=== PATIENT | female | born 1945 | race Caucasian/White ===

== ENCOUNTER 2022-05-31 17:54 | Outpatient (REF) | payer MEDICARE, SELFPAY ==
[2022-05-31 18:35] LABS: Influenza A PCR NEGATIVE (Negative); Influenza B PCR NEGATIVE (Negative); Resp Syncy Virus RNA Qual PCR NEGATIVE (Negative); SARS COV2 PCR INHOUSE NEGATIVE (Negative)
== END 2022-05-31 17:55 | disposition home or self-care (01) ==
LOC: HO.LNP 17:54
PROVIDERS: Visit Provider Internal Medicine
DX: R43.9 Unspecified disturbances of smell and taste (principal); Z20.822 Contact with and (suspected) exposure to COVID-19
CPT/HCPCS: 0241U

== ENCOUNTER 2022-11-08 09:07 | Outpatient (AMB) | payer MEDICARE, SELFPAY ==
--- NOTE | 2022-11-08 09:08 | AM.OFFWIN_ITS ---
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 Intake Note: pt is here for upset stomach, pt states she was constipated for a few days, states the upset stomach is been lasting a week Patient Tobacco Use Status: Never used Tobacco Set Up Operator Required: No Accompanied by: Self / Same As Patient Allergies No Known Allergies Allergy (Verified 11/08/22 09:40) Medication List - Last Reconciled 11/08/22 by Nora Valle, [facility]- amlodipine 5 mg PO DAILY atorvastatin 40 mg PO DAILY Do you need a note to return to daycare/school/sports/work: No HPI HPI Comments History of Present Illness Details Here today with complaints of abdominal pain in the right upper and right lower quadrant that started a few days ago. Reports she started off with constipation which she treated with [id number] Colace with good relief. It was then that she started with this abdominal pain. She has been using Advil once daily with positive relief. She denies fever and chills nausea vomiting. Reports a normal appetite. Denies abdominal surgery or any alcohol use. [facility] Social History Patient Tobacco Use Status: Never used Tobacco Review of Systems Const All systems reviewed & are unremarkable except as noted in HPI and below Physical Exam Vital Signs: Last Vital Signs Temp 97.6 F 11/08/22 09:10 Pulse 106 H 11/08/22 09:10 BP 126/72 11/08/22 09:10 Pulse Ox 94 11/08/22 09:10 Const Other: Awake alert nontoxic, anxious sclera clear bilat mucous membranes dry which she reports is normal tachycardic normal rhythm tachypneic, speaking in full sentences maintaining on airway abdomen is soft positive bowel sounds in 4 quadrants, rebound tenderness in left lower quadrant and right lower quadrant. Negative Coates sign. No hepatosplenomegaly appreciated on exam no epigastric tenderness. skin pink warm dry Assessment & Plan Assessment & Plan (1) Acute abdominal pain in left lower quadrant: Code(s): R10.32 - Left lower quadrant pain Plan given exam findings today the patient was advised to seek care in the emergency room for additional imaging. Differential diagnosis includes diverticulitis versus appendicitis. She states that she has to work at 11:00 and does not want to go to the emergency room right now. She will go to work and then she will report to the [facility] Emergency Room. I told her to advise the triage desk that she was seen here so they were able to pull up the records. She is aware of the risks of not seeking care right now as recommended. Patient Instructions: NOTHING TO EAT OR DRINK. PLEASE HEAD DIRECTLY TO THE EMERGENCY ROOM FOR FURT HER EVALUATION AND TREATMENT Coding Level of Care Code Est Pt Level 3 (38163) Diagnoses Acute abdominal pain in left lower quadrant R10.32
[2022-11-08 09:10] VITALS: BP 126/72; PULSE 106; TEMP 36.4; O2SAT 94
== END 2022-11-08 09:55 | disposition home or self-care (01) ==
PROVIDERS: PCP Internal Medicine; Visit Provider Nurse Practitioner Family
DX: R10.32 Left lower quadrant pain (principal)
CPT/HCPCS: 99213

== ENCOUNTER 2022-11-08 15:32 | Inpatient (IN) | payer MEDICARE, SELFPAY ==
--- NOTE | ~2022-11-08 | CT_ITS ---
EXAMINATION: CT ANGIOGRAM OF THE CHEST WITH AND WITHOUT CONTRAST (CT PULMONARY ANGIOGRAM FOR PE) CLINICAL INFORMATION: Reason for Exam SOB COMPARISON: 11/08/2022 TECHNIQUE: Prior to contrast administration, noncontrast localization images were obtained. Subsequently, multidetector volumetric imaging was performed from the thoracic inlet to below the diaphragms following the administration of 74 mL Omnipaque 350 intravenous contrast. No contrast reaction reported Sagittal, coronal, and MIP oblique sagittal reformatted images were obtained on the CT workstation, uploaded to PACS, and reviewed. This CT examination was performed using dose optimization techniques as appropriate, variously including the following: *Automated exposure control *Adjustment of mA and/or kV according to patient size (this includes techniques or standardized protocols for targeted exams where dose is matched to indication/reason for exam; i.e. extremities or head) *Use of iterative reconstruction technique Total exam dose-length product 347 mGy-cm FINDINGS: QUALITY OF STUDY/CONTRAST BOLUS: Satisfactory. PULMONARY ARTERIES: No central or proximal segmental pulmonary embolus is seen. However, there is a complete assessment of the more distal vasculature due to respiratory motion artifact. THORACIC AORTA: No aneurysm. LUNG: Again noted is collapse of most of the left lung secondary to adjacent large pleural effusion. No focal consolidation identified in the right lung, with evaluation limited due to respiratory motion artifact. Mild dependent atelectasis in the right lower lobe. PLEURA: Large left pleural effusion redemonstrated. Trace right pleural effusion. No pneumothorax. MEDIASTINUM: The visualized thyroid gland is unremarkable. Subcarinal soft tissue density measuring up to 1.7 cm in short axis dimension and is suspicious for adenopathy. Cardiac size is within normal limits; no pericardial effusion. CORONARY ARTERY CALCIFICATION: Mild CHEST WALL/AXILLA: No axillary or internal mammary lymphadenopathy. OSSEOUS STRUCTURES: Degenerative changes are noted in the spine. UPPER ABDOMEN: Better assessed on dedicated recent abdominal CT 11/08/2022. No reflux of contrast into the hepatic veins to suggest elevated right heart pressures. CT/CT angio chest PE protocol IMPRESSION: 1. No central or proximal segmental pulmonary embolus identified. However, there is complete assessment of the more distal vasculature due to respiratory motion artifact. 2. Redemonstrated large left pleural effusion with collapse of most of the left lung. Trace right pleural effusion. 3. Subcarinal soft tissue density suspicious for travis metastasis given the recently reported findings in the abdomen. VTE: negative.
--- NOTE | ~2022-11-08 | US_ITS ---
Examination: Ultrasound-guided left thoracentesis. CLINICAL HISTORY: Moderate left pleural effusion. COMPARISON: CT H cast 11/09/2022. TECHNIQUE: Following explaining ultrasound-guided left thoracentesis procedure, benefits and risk, a written consent was obtained. Patient was placed sitting upright and preliminary ultrasound imaging was obtained through the posterior chest. An optimal site was selected and marked on the skin. The marked site was cleaned and draped in usual sterile managed with 2% chlorhexidine solution. 1% lidocaine was injected puncture site. Through a small skin incision a 4 [place] [employer].fmeh catheter was advanced into the left pleural space. After observing fluid return, stylet was withdrawn and catheter connected to vacuum bottle via connecting cannula. After removing 1.1 L of fluid patient complained of mild shortness of breath. Exam was terminated at this point. Complete hemostasis achieved at puncture site. Sterile dressing applied postprocedure. Portable chest x-ray was obtained subsequently FINDINGS: On preliminary ultrasound imaging there is moderate to large left pleural effusion. A very small right pleural effusion was noted. Approximately 1.1 L of clear cloudy red fluid was drained from the left pleural space. Part of this fluid was sent to lab for culture and sensitivity, Gram stain, cytology, and other lab evaluation. US/US thoracentesis IMPRESSION: Successful ultrasound-guided diagnostic and partial therapeutic left thoracentesis performed.
--- NOTE | ~2022-11-08 | CT_ITS ---
EXAMINATION: CT CHEST, ABDOMEN AND PELVIS WITH CONTRAST CLINICAL INFORMATION: Right-sided abdominal pain and left pleural effusion COMPARISON: No pertinent prior studies are available for comparison. TECHNIQUE: Multidetector volumetric imaging was performed through the abdomen and pelvis during administration of 85 mL of Omnipaque 350. Directly after this, the chest was scanned. Sagittal and coronal reformatted images were obtained on the technologist's workstation. This CT examination was performed using dose optimization techniques as appropriate, variously including the following: *Automated exposure control *Adjustment of mA and/or kV according to patient size (this includes techniques or standardized protocols for targeted exams where dose is matched to indication/reason for exam; i.e. extremities or head) *Use of iterative reconstruction technique DLP: 640 mGy-cm FINDINGS: CHEST: Lungs and Pleura: There is a large left pleural effusion present with collapse of most of the left lung with only a small amount of aerated lung present in the left upper lobe. There is a small right pleural effusion and right basilar atelectasis. Some small micronodules are seen in the right lower lobe beneath the major fissure most likely tarvis tissue. Mediastinum: The mediastinum is unremarkable. The central vascular structures are unremarkable. No hilar or mediastinal lymphadenopathy. No pericardial effusion. Coronary Artery Calcium: Minimal Chest Wall/Axilla: Unremarkable ABDOMEN/PELVIS: Peritoneal Space: Omental cake is present in the greater omentum as well as the mesentery suspicious for peritoneal carcinomatosis. There is tethering of some small bowel loops in the pelvis secondary to the mesenteric changes. Small amount of ascites is present in the pelvis. Liver, Gallbladder, Biliary Tree: The liver is normal in size, shape, and attenuation. Multiple tiny hypodensities are seen in the liver that are indeterminate. No focal hepatic lesion or biliary ductal dilatation is present. The gallbladder is unremarkable with no evidence of radiopaque gallstones, gallbladder wall thickening, or obvious pericholecystic inflammatory changes. Pancreas: Unremarkable Spleen: Unremarkable Adrenal Glands: Unremarkable Kidneys and Ureters: The kidneys are normal in size, shape, and attenuation. Multiple bilateral parapelvic benign Bosniak class I renal cysts are noted which require no additional imaging or follow-up. No solid renal masses are seen. No hydronephrosis, hydroureter, or calculi seen. No perinephric stranding. Bladder: Unremarkable Gastrointestinal Tract: Colonic diverticula are present without diverticulitis. There is some mild tethering of small bowel loops in the pelvis secondary to mesenteric/omental changes but no evidence of bowel obstruction. The small and large bowel are unremarkable. The appendix is unremarkable. Abdominal Wall: No significant hernia is appreciated. Lymph Nodes: No lymphadenopathy. Vascular: The aorta appears normal.. The IVC appears unremarkable. PELVIC VISCERA: Unremarkable OSSEUS STRUCTURES: Scoliosis convex to the left with moderate degenerative changes are noted throughout the spine. No bony destructive lesions are seen. CT/CT abdomen pelvis w IV con IMPRESSION: 1. Large left pleural effusion with collapse of most of the left lung. 2. Small right pleural effusion. 3. Omental cake suspicious for peritoneal carcinomatosis with a small amount of ascites. 4. Other incidental findings as described above. 5. Consider thoracentesis with cytology for diagnosis or biopsy of the omental cake. Fleischner guidelines were followed.
--- NOTE | ~2022-11-08 | XR_ITS ---
EXAMINATION: XR CHEST CLINICAL INFORMATION: Pleural effusion. Shortness of breath. Status post left thoracentesis. COMPARISON: CT A7 1323 TECHNIQUE: 2 views, inspiration/expiration of the chest were obtained. FINDINGS: Status post thoracentesis there is moderate left pleural effusion remaining. There is no pneumothorax. The left upper lobe and the right lung is expanded and clear. The heart size is not well visualized. Perivascular is normal. No gross bony abnormality. XR/XR chest 2V IMPRESSION: Status post left thoracentesis there is a moderate left pleural effusion remaining. There is no pneumothorax. .
--- NOTE | 2022-11-08 15:59 | ED_ITS ---
HPI - General Adult General Chief complaint: Abdominal Pain Stated complaint: Sent by urgent care for catscan Time Seen by Provider: 11/08/22 17:07 Source: patient Mode of arrival: ambulatory Limitations: no limitations History of Present Illness HPI narrative: This is a 77-year-old female history of obesity presenting to the emergency department complaints of right upper quadrant right lower quadrant abdominal p ain for the past week worsening w/ a/c shortness of breath which has been present for the past few weeks, patient reports she went to urgent care who advised her to come in today for evaluation. Patient reports pain is constant in nature, sharp, she reports that she has tried ibuprofen, Colace with little to no relief. Denies fevers, chills, nausea, vomiting, abdominal pain, headache, vision changes, dizziness. Related Data Home Medications Medication Instructions Recorded Confirmed amlodipine 5 mg tablet 5 mg PO DAILY 12/08/21 11/08/22 atorvastatin 40 mg tablet 40 mg PO DAILY 12/08/21 11/08/22 Allergies Allergy/AdvReac Type Severity Reaction Status Date / Time No Known Allergies Allergy Verified 11/08/22 16:00 Review of Systems Review of Systems: Constitutional : No Weight loss, No Fever, No Chills, No Fatigue, No Malaise ENT/Mouth : No sore throat, No Rhinorrhea Eyes: No Eye Pain, No Swelling, No Redness Cardiovascular : No Chest Pain, + SOB, No Dyspnea on Exertion, No Orthopnea, No Edema, No Palpitations Respiratory : No Cough, No Sputum, No Wheezing Gastrointestinal : No Nausea, No Vomiting, No Diarrhea, No Constipation, + abdominal Pain, No Hematochezia, No Melena Genitourinary : No Dysuria, No Urinary Frequency, No Hematuria, Musculoskeletal : No joint pain, No Myalgias, No Joint Swelling Skin : No Skin Lesions, No rash Neuro : No Weakness, No Numbness, No Dizziness, No Headache Psych : No Anxiety/Panic, No Depression All other systems reviewed and are negative Yes all other systems are reviewed and are negative [facility], [facility] Past Medical History Attestation statement: The following information was validated with the patient. Source: old records reviewed and nursing notes reviewed Social History Social History Alcohol intake: never Patient Tobacco Use Status: Never used Tobacco Smoked in Last 30 Days: No Use of substances other than those prescribed or required for medical reasons: No Advance Directives: No Advance Directives Information Provided: No Physical Exam ED Vital Signs: Vital Signs - 24 hr 11/08/22 16:00 11/08/22 20:48 Temperature 97.6 F 97.9 F Pulse Rate 102 H 100 Respiratory Rate 16 18 Blood Pressure 158/70 H 164/73 H Pulse Oximetry 93 93 Oxygen Delivery Method Room Air Room Air BMI result Body Mass Index 34.2 Vital signs stable Appearance: Alert.? Oriented X3.? No acute distress.? Head: Normocephalic, atraumatic, no step-offs or deformities Eyes: Pupils equal, round and reactive to light.? Neck: Normal inspection.? Neck supple.? CVS: Normal heart rate and rhythm.? Pulses normal.? Respiratory: No respiratory distress.? Breath sounds diminished b/l L>R Abdomen: Soft and + tenderness to lower abdomen diffusely, worse to the right lower quadrant. Negative Coates sign. Normoactive bowel sounds..? Skin: Skin warm and dry.? Normal skin color.? Normal skin turgor.? Extremities: No lower extremity edema.? No calf ttp. 5/5 strength to bilateral upper and lower extremities Neuro: Oriented X 3.? No motor deficit.? No sensory deficit. CN 2-12 intact Course Course Course Narrative: This is a rapid medical exam: Additional HPI, ROS, PE not included below will be deferred to primary provider. Patient is a 77-year-old female presenting to the emergency department from urgent care who referred patient for abdominal CT. Patient reported RUQ and RLQ abdominal pain for a week. Used colace with some r elief, then pain returned. Denies fevers. Denies nausea or vomiting. Abdomen soft, normoactive BS, patient reporting pain in LLQ with palpation of RLQ, negative Coates's. No CVA tenderness. Plan: labs, UA Reevaluation(s) Reevaluation #1: Patient's CBC with leukocytosis 11.2. Chemistry unremarkable however BUN slightly elevated likely secondary to poor p.o. intake. Troponin negative. BNP normal. Patient's urine clean. CT of the abdomen and pelvis with omental cake suspicious for peritoneal carcinomatosis with a small amount of ascites, patient's abdomen with mild tenderness low suspicion for spontaneous bacterial peritonitis. There is also a large left pleural effusion with collapse of most of the left lung as well as a small right pleural effusion. This is likely why patient is having abdominal pain and shortness of breath. Concerns for malignancy at this time. Plan is for hospital admission, patient will likely require a diagnostic thoracentesis with cystology. Hospitalist aware. Time: 21:21 Medications Administered Discontinued Medications Generic Name Dose Route Start Last Admin Trade Name Freq PRN Reason Stop Dose Admin Ibuprofen 600 mg 11/08/22 20:24 11/08/22 20:34 Ibuprofen 600 Mg Tablet PO 11/08/22 20:25 600 mg ONCE ONE Administration Iohexol 100 ml 11/08/22 18:12 11/08/22 18:13 Iohexol 350 Mg/Ml 100 Ml Infus..Btl IV 11/08/22 18:13 85 ml ONCE ONE Administration Morphine Sulfate 2 mg 11/08/22 19:59 11/08/22 20:34 Morphine Sulfate 2 Mg/Ml Cartridge IVPUSH 11/08/22 20:00 Not Given ONCE ONE Protocol Medical Decision Making Medical Decision Making [facility] Narrative: 1714 77-year-old female presents with lower abdominal pain, sent from urgent care for a CT scan. Pain ongoing for a week and worsening. Physical exam significant for tenderness to lower abdomen diffusely, worse to the right lower quadrant. Negative Coates sign. Normoactive bowel sounds..?Diminished breath sounds bilaterally L>R Will rule out appendicitis versus diverticulitis. Unlikely cholecystitis, choledocholithiasis, cholangitis. No signs of acute abdomen. Unlikely small or large bowel obstruction. Low suspicion for CHF, pneumonia. Will rule out effusion. Unlikely pulmonary embolism Plan at this time labs, imaging, urine. Differential Diagnosis Differential Diagnoses: The differential diagnosis associated with the presentation includes Will rule out appendicitis versus diverticulitis. Unlikely cholecystitis, choledocholithiasis, cholangitis. No signs of acute abdomen. Unlikely small or large bowel obstruction.Low suspicion for CHF, pneumonia. Will rule out effusion. Unlikely pulmonary embolism Admission/Observation Consideration of admission/observation: Escalation of care including admission/observation considered Unlikely Lab Data [facility] Lab Attestation statement: I reviewed the patient's lab results. 11/08/22 17:18 11/08/22 17:18 Labs: Lab Results 11/08/22 11/08/22 11/08/22 Range/Units 17:18 17:18 17:18 WBC 11.2 H (4.8-10.8) X10*3/uL RBC 5.11 (4.20-5.50) X10*6/uL Hgb 14.4 (12.0-16.0) g/dl Hct 45.1 (37.0-47.0) % MCV 88.3 (80.0-98.0) fL MCH 28.2 (27.0-33.0) pg MCHC 31.9 (31.0-35.0) g/dl RDW 12.1 (11.0-16.0) % Plt Count 390 (160-400) X10*3/uL MPV 9.5 (9.4-12.3) fL Immature Gran % (Auto) 0.3 (0.0-0.4) % Neut % (Auto) 72.7 (45-73) % Lymph % (Auto) 15.2 L (20-40) % [place] % (Auto) 10.0 (2-11) % Eos % (Auto) 1.4 (0-4) % Baso % (Auto) 0.4 (0-2) % Lymph # (Auto) 1.7 (1.2-4.9) X10*3/uL [place] # (Auto) 1.1 (0.1-1.2) X10*3/uL Eos # (Auto) 0.2 (0.0-0.4) X10*3/uL Baso # (Auto) 0.1 (0.0-0.2) X10*3/uL Abs Immat Gran (auto) 0.03 (0.00-0.03) X10*3/uL Absolute Neuts (auto) 8.2 (2.0-8.3) x10*3/uL Absolute Nucleated RBC 0.000 (0.0-0.012) X10*3/uL Nucleated RBC % (auto) 0.0 (0.0-0.2) /100WBC Sodium 144 (135-145) mmol/L Potassium 4.0 (3.3-5.1) mmol/L Chloride 105 (96-108) mmol/L Carbon Dioxide 25 (22-29) mmol/L Anion Gap 18 (12-20) BUN 25 H (9-16) mg/dL Creatinine 0.90 (0.5-1.4) mg/dL Estim Creat Clear Calc 54.9 Estimated GFR > 60 Random Glucose 92 (60-115) mg/dL Calcium 9.5 (8.4-10.2) mg/dL Total Bilirubin 0.6 (0.0-1.0) mg/dL AST 16 (5-31) U/L ALT 21 (0-31) U/L Alkaline Phosphatase 104 (39-117) U/L Troponin I High Sens (<3.5-17.0) ng/L B-Natriuretic Peptide 12 (<100) pg/mL Total Protein 7.1 (6.5-8.0) g/dL Albumin 3.9 (3.5-5.0) g/dL Lipase 12 (8-78) U/L Urine Color Urine Appearance Urine pH (5.0-9.0) Ur Specific [place] (1.005-1.025) Urine Protein (Neg-Trace) mg/dL Urine Glucose (UA) (Negative) mg/dL Urine Ketones (Negative) mg/dL Urine Blood (Negative) Urine Nitrite (Negative) Ur Leukocyte Esterase (Negative) 11/08/22 11/08/22 Range/Units 18:35 19:22 WBC (4.8-10.8) X10*3/uL RBC (4.20-5.50) X10*6/uL Hgb (12.0-16.0) g/dl Hct (37.0-47.0) % MCV (80.0-98.0) fL MCH (27.0-33.0) pg MCHC (31.0-35.0) g/dl RDW (11.0-16.0) % Plt Count (160-400) X10*3/uL MPV (9.4-12.3) fL Immature Gran % (Auto) (0.0-0.4) % Neut % (Auto) (45-73) % Lymph % (Auto) (20-40) % [place] % (Auto) (2-11) % Eos % (Auto) (0-4) % Baso % (Auto) (0-2) % Lymph # (Auto) (1.2-4.9) X10*3/uL [place] # (Auto) (0.1-1.2) X10*3/uL Eos # (Auto) (0.0-0.4) X10*3/uL Baso # (Auto) (0.0-0.2) X10*3/uL Abs Immat Gran (auto) (0.00-0.03) X10*3/uL Absolute Neuts (auto) (2.0-8.3) x10*3/uL Absolute Nucleated RBC (0.0-0.012) X10*3/uL Nucleated RBC % (auto) (0.0-0.2) /100WBC Sodium (135-145) mmol/L Potassium (3.3-5.1) mmol/L Chloride (96-108) mmol/L Carbon Dioxide (22-29) mmol/L Anion Gap (12-20) BUN (9-16) mg/dL Creatinine (0.5-1.4) mg/dL Estim Creat Clear Calc Estimated GFR Random Glucose (60-115) mg/dL Calcium (8.4-10.2) mg/dL Total Bilirubin (0.0-1.0) mg/dL AST (5-31) U/L ALT (0-31) U/L Alkaline Phosphatase (39-117) U/L Troponin I High Sens < 2.7 (<3.5-17.0) ng/L B-Natriuretic Peptide (<100) pg/mL Total Protein (6.5-8.0) g/dL Albumin (3.5-5.0) g/dL Lipase (8-78) U/L Urine Color Yellow Urine Appearance Clear Urine pH 5.0 (5.0-9.0) Ur Specific [place] >= 1.030 H (1.005-1.025) Urine Protein Trace (Neg-Trace) mg/dL Urine Glucose (UA) Negative (Negative) mg/dL Urine Ketones 15 (Negative) mg/dL Urine Blood Negative (Negative) Urine Nitrite Negative (Negative) Ur Leukocyte Esterase Negative (Negative) Independent Interpretation I performed an independent interpretation of an: CT Scan (CT/CT abdomen pelvis w IV con IMPRESSION: 1. Large left pleural effusion with collapse of most of the left lung. 2. Small right pleural effusion. 3. Omental cake suspicious for peritoneal carcinomatosis with a small amount of ascites. 4. Other incidental findings as described above. 5. Consider) Radiology Impression Discussion of test interpretation with radiology: I have reviewed the radiologist's reading. Core Measures AMI core measures followed: Yes Measure exclusions: not indicated Critical Care Time Critical Care Time Critical Care Time: No Discharge Plan Discharge Clinical Impression: Abdominal pain, Pleural effusion, Ascites Patient Disposition: Admitted As Inpatient Prescriptions: No Action amlodipine 5 mg tablet 5 mg PO DAILY atorvastatin 40 mg tablet 40 mg PO DAILY
[2022-11-08 16:00] VITALS: BP 158/70; PULSE 102; RESP 16; TEMP 36.4; O2SAT 93; BMI 34.2
[2022-11-08 17:30] LABS: MANUAL DIFF FLAG NO
[2022-11-08 17:31] LABS: Basophils Absolute Auto 0.1 X10*3/uL (0.0-0.2); Basophils Percent Auto 0.4 % (0-2); Eosinophils Absolute Auto 0.2 X10*3/uL (0.0-0.4); Eosinophils Percent Auto 1.4 % (0-4); Hematocrit 45.1 % (37.0-47.0); Hemoglobin 14.4 g/dl (12.0-16.0); Imm Gran Abs Auto 0.03 X10*3/uL (0.00-0.03); Imm Gran Pct Auto 0.3 % (0.0-0.4); Lymphocytes Absolute Auto 1.7 X10*3/uL (1.2-4.9); Lymphocytes Percent Auto 15.2 % (20-40); Mean Corpuscular HGB Conc 31.9 g/dl (31.0-35.0); Mean Corpuscular Hemoglobin 28.2 pg (27.0-33.0); Mean Corpuscular Volume 88.3 fL (80.0-98.0); Mean Platelet Volume 9.5 fL (9.4-12.3); Monocytes Absolute Auto 1.1 X10*3/uL (0.1-1.2); Neutrophils Absolute Auto 8.2 x10*3/uL (2.0-8.3); Neutrophils Percent Auto 72.7 % (45-73); Platelet Count 390 X10*3/uL (160-400); Red Blood Count 5.11 X10*6/uL (4.20-5.50); Red Cell Distribution Width 12.1 % (11.0-16.0); White Blood Count 11.2 X10*3/uL (4.8-10.8)
[2022-11-08 17:47] LABS: Alanine Aminotransferase 21 U/L (0-31); Albumin Level 3.9 g/dL (3.5-5.0); Alkaline Phosphatase 104 U/L (39-117); Anion Gap 18 (12-20); Aspartate Amino Transferase 16 U/L (5-31); Bilirubin Total 0.6 mg/dL (0.0-1.0); Blood Urea Nitrogen 25 mg/dL (9-16); Calcium 9.5 mg/dL (8.4-10.2); Carbon Dioxide 25 mmol/L (22-29); Chloride 105 mmol/L (96-108); Creatinine Clr Calc Pharmacy 54.9; Estimated Glomerular Filt Rate > 60; Glucose Random 92 mg/dL (60-115); Lipase 12 U/L (8-78); Sodium 144 mmol/L (135-145); Total Protein 7.1 g/dL (6.5-8.0)
--- NOTE | 2022-11-08 18:11 | ECG_ITS ---
Test Reason : SOB Blood Pressure : / mmHG Vent. Rate : 092 BPM Atrial Rate : 092 BPM P-R Int : 174 ms QRS Dur : 126 ms QT Int : 392 ms P-R-T Axes : 060 -24 000 degrees QTc Int : 484 ms Normal sinus rhythm Right bundle branch block Abnormal ECG No previous ECGs available Referred By: Kimi Aguirre Electronically Signed By:MORGAN FONG MD
[2022-11-08] MEDS: iohexoL 350 MG/ML 100 ML INFUS..BTL IV (18:13)
[2022-11-08 18:46] LABS: B Type Natriuretic Peptide 12 pg/mL (<100)
[2022-11-08 19:10] LABS: Troponin-I High Sensitivity < 2.7 ng/L (<3.5-17.0)
[2022-11-08 19:35] LABS: Appearance Urine Clear; Color Urine Yellow; Glucose Urine UA Negative (Negative); Leukocyte Esterase Urine Negative (Negative); Nitrite Urine Negative (Negative); Specific Gravity - Urine >= 1.030 (1.005-1.025); Urine Blood Negative (Negative); Urine Ketones 15 mg/dL (Negative); Urine Protein Trace mg/dL (Neg-Trace)
[2022-11-08] MEDS: Ibuprofen 600 MG TABLET PO (20:34)
--- NOTE | 2022-11-08 20:39 | PC.NURSE ---
pt concerned about taking morphine, pt anticipates driving home later. pt refused and medicated with Motrin 600mg per MAR
[2022-11-08 20:48] VITALS: BP 164/73; PULSE 100; RESP 18; TEMP 36.6; O2SAT 93
--- NOTE | 2022-11-08 21:36 | PHA.MEDREC ---
Pharmacy Consult ? Medication Reconciliation Pharmacy has completed the medication reconciliation. Spoke to patient. States they took ibuprofen x1 today [place]
--- NOTE | 2022-11-08 21:46 | PM.IMHP ---
History of Present Illness Date of Service: 11/08/22 Chief Complaint: abdominal pain 77-year-old female past medical history of hypertension and hyperlipidemia comes into the hospital complaints of abdominal pain. Patient reports that her abdominal pain been going on for past one week, localized to the right lower quadrant, nonradiating, intermittent, not associated with any nausea or vomiting. Patient was also noted to be short of breath, when asked about it she said that she has been short of breath for the past 2 weeks. She denies any cough, no sputum production. No fever or chills, no weight loss. Denies any diarrhea constipation, no urinary symptoms and no lower extremity edema. On arrival to the ED patient noted to be tachycardic with a heart rate of 106, blood pressure stable, satting 90-93% on room air Labs are significant for WBC count of 11.2, INR of 1.1, labs otherwise unremarkable, UA negative patient underwent imaging including CT chest as well as abdomen pelvic CT that showed large left pleural effusion with collapse of most of the left lung, small right pleural effusion, omental cake suspicious for peritoneal carcinomatosis with a small amount of ascites, patient will be admitted for further management and evaluation Review of Systems Review of Systems: Yes all other systems are reviewed and are negative [facility] Medical History Hyperlipidemia Hypertension Surgical History No pertinent past surgical history Social History Alcohol intake: never Patient Tobacco Use Status: Never used Tobacco Smoked in Last 30 Days: No Use of substances other than those prescribed or required for medical reasons: No Advance Directives: No Advance Directives Information Provided: No Meds Allergies Allergy/AdvReac Type Severity Reaction Status Date / Time No Known Allergies Allergy Verified 11/08/22 16:00 Active Medications: Current Medications Pharmacy Consult (Consult Rx Perform Med Rec) 1 each MISCELLANE ONCE PRN PRN Reason: Consult order Home Medications Medication Instructions Recorded Confirmed Last Taken Type amlodipine 5 mg tablet 5 mg PO DAILY 12/08/21 11/08/22 11/08/22 History atorvastatin 40 mg tablet 40 mg PO DAILY 12/08/21 11/08/22 11/08/22 History Physical Exam Vital Signs and Narrative: Vital Signs: Last Vital Signs Temp 97.9 F 11/08/22 20:48 Pulse 100 11/08/22 20:48 Resp 18 11/08/22 20:48 BP 164/73 H 11/08/22 20:48 Pulse Ox 93 11/08/22 20:48 O2 Del Method Room Air 11/08/22 20:48 BMI result Body Mass Index 34.2 Const: General: cooperative and no acute distress Orientation/consciousness: patient oriented x3 Eyes: General: appearance normal, both eyes and all related structures Resp: Effort & Inspection: normal respiratory effort Auscultation: clear to auscultation bilaterally Cardio: Rate: regular rate Rhythm: regular rhythm GI: Other: abdomen is soft, nontender, no rebound or guarding Palpation (GI): Soft to palpation Auscultation: normal bowel sounds Skin: General skin exam: no rashes or lesions noted Neuro: General: patient oriented x3 Cognition (Neuro): normal cognition Extrem: General: Yes normal to inspection and Yes no pedal edema Results Labs 11/08/22 17:18 11/08/22 17:18 Labs: Laboratory Results - last 24 hr 11/08/22 11/08/22 11/08/22 17:18 17:18 17:18 MCV 88.3 MCH 28.2 MCHC 31.9 RDW 12.1 Plt Count 390 MPV 9.5 Immature Gran % (Auto) 0.3 Neut % (Auto) 72.7 Lymph % (Auto) 15.2 L [place] % (Auto) 10.0 Eos % (Auto) 1.4 Baso % (Auto) 0.4 Lymph # (Auto) 1.7 [place] # (Auto) 1.1 Eos # (Auto) 0.2 Baso # (Auto) 0.1 Abs Immat Gran (auto) 0.03 Absolute Neuts (auto) 8.2 Absolute Nucleated RBC 0.000 Nucleated RBC % (auto) 0.0 Anion Gap 18 Estim Creat Clear Calc 54.9 Estimated GFR > 60 Random Glucose 92 Calcium 9.5 Total Bilirubin 0.6 AST 16 ALT 21 Alkaline Phosphatase 104 Troponin I High Sens B-Natriuretic Peptide 12 Total Protein 7.1 Albumin 3.9 Lipase 12 Urine Color Urine Appearance Urine pH Ur Specific [place] Urine Protein Urine Glucose (UA) Urine Ketones Urine Blood Urine Nitrite Ur Leukocyte Esterase 11/08/22 11/08/22 18:35 19:22 MCV MCH MCHC RDW Plt Count MPV Immature Gran % (Auto) Neut % (Auto) Lymph % (Auto) [place] % (Auto) Eos % (Auto) Baso % (Auto) Lymph # (Auto) [place] # (Auto) Eos # (Auto) Baso # (Auto) Abs Immat Gran (auto) Absolute Neuts (auto) Absolute Nucleated RBC Nucleated RBC % (auto) Anion Gap Estim Creat Clear Calc Estimated GFR Random Glucose Calcium Total Bilirubin AST ALT Alkaline Phosphatase Troponin I High Sens < 2.7 B-Natriuretic Peptide Total Protein Albumin Lipase Urine Color Yellow Urine Appearance Clear Urine pH 5.0 Ur Specific [place] >= 1.030 H Urine Protein Trace Urine Glucose (UA) Negative Urine Ketones 15 Urine Blood Negative Urine Nitrite Negative Ur Leukocyte Esterase Negative Imaging Radiologist's Impressions: Impressions Abdomen/Pelvis CT 11/08/22 18:21 IMPRESSION: 1. Large left pleural effusion with collapse of most of the left lung. 2. Small right pleural effusion. 3. Omental cake suspicious for peritoneal carcinomatosis with a small amount of ascites. 4. Other incidental findings as described above. 5. Consider thoracentesis with cytology for diagnosis or biopsy of the omental cake. Fleischner guidelines were followed. Chest CT 11/08/22 18:22 IMPRESSION: 1. Large left pleural effusion with collapse of most of the left lung. 2. Small right pleural effusion. 3. Omental cake suspicious for peritoneal carcinomatosis with a small amount of ascites. 4. Other incidental findings as described above. 5. Consider thoracentesis with cytology for diagnosis or biopsy of the omental cake. Fleischner guidelines were followed. Assessment and Plan (1) Abdominal pain: Status: Acute (2) Pleural effusion: Status: Acute (3) Abdominal carcinomatosis: Status: Acute Plan this is a 77-year-old female past medical history of hypertension, hyperlipidemia comes into the hospital with complaints of abdominal pain found to have pleural effusion with left lung collapse # pleural effusion with left lung collapse - likely exudative in the setting of possible carcinomatosis is seen on imaging - at this time will consult IR for thoracocentesis - thoracic surgery also consulted - will send for cytology and further evaluation of fluid - hematology consulted - no hypoxia, monitor respiratory status # abdominal carcinomatosis - imaging concerning for abdominal carcinomatosis - Hematology-Oncology consulted # hypertension - stable - continue home antihypertensives # hyperlipidemia - continue statin DVT prophylaxis: Heparin subQ Given patient's need for further evaluation of the large pleural effusion as well as lung collapse patient require minimum 2 night inpatient hospital stay for further management an evaluation by specialists as mentioned above Time Spent With Patient Time: Total time managing care of this patient today ____ minutes. Quality Stroke Does the patient have a stroke diagnosis?: No VTE Prior VTE?: No VTE Risk Level:: Medical - moderate - high VTE Device Contraindication: Treatment Not Indicated VTE Drug Contraindication: N/A - Med Ordered
[2022-11-08 21:53] LABS: INTERNATIONAL NORM RATIO 1.1 (0.9-1.1); Prothrombin Time 12.8 SEC (10.0-13.1)
[2022-11-08 22:49] VITALS: BP 147/71; PULSE 105; RESP 18; TEMP 36.7; O2SAT 90
--- NOTE | 2022-11-08 22:53 | PC.NURSE ---
placing pt on 2L nc as 90% when at rest. talking w/o issue. no distress noted. ambulates well. no pain reported. ate well snacks/fluids.
[2022-11-08] MEDS: Heparin Sodium,Porcine 5,000 UNIT/ML VIAL 5000 UNIT SUBCUT (23:13)
--- NOTE | 2022-11-08 23:17 | PC.NURSE ---
Took over care at 23:00, medicated pt Mar, Pt placed on monitor.
[2022-11-09] VITALS (10 sets, daily range): BP systolic 125–162; BP diastolic 50–83; PULSE 82–103; RESP 14–37; TEMP 36.4–36.6; O2SAT 93–96
[2022-11-09] MEDS: iohexoL 350 MG/ML 100 ML INFUS..BTL 65 ML IV (01:49)
--- NOTE | 2022-11-09 03:08 | PC.NURSE ---
Pt is sleeping at this time, no sign of distress, will continue to monitor.
--- NOTE | 2022-11-09 03:22 | PC.NURSE ---
Pt assist to bathroom and with personal care.
[2022-11-09] MEDS: 0.9 % Sodium Chloride Flush 3 ML SYRINGE IVFLUSH ×3 (05:01→17:31)
--- NOTE | 2022-11-09 06:12 | PC.NURSE ---
pt sleeping, no sign of respiratory distress, Will continue to monitor.
[2022-11-09] MEDS: Morphine Sulfate 4 MG/ML CARTRIDGE IM (06:22)
--- NOTE | 2022-11-09 06:28 | PC.NURSE ---
Notified Dr Mcmullen, regarding increase wheezes and respiratory rate, Medicated per new order and notified respiratory for breathing treatment.
[2022-11-09] MEDS: Furosemide 100 MG/10 ML VIAL 60 MG IVPUSH (06:38)
--- NOTE | 2022-11-09 06:45 | PC.NURSE ---
medicated pt per mar. Will continue monitor.
[2022-11-09 06:50] LABS: MANUAL DIFF FLAG NO
[2022-11-09 06:58] LABS: Basophils Absolute Auto 0.1 X10*3/uL (0.0-0.2); Basophils Percent Auto 0.5 % (0-2); Eosinophils Absolute Auto 0.1 X10*3/uL (0.0-0.4); Eosinophils Percent Auto 0.7 % (0-4); Hematocrit 41.3 % (37.0-47.0); Hemoglobin 13.4 g/dl (12.0-16.0); Imm Gran Abs Auto 0.03 X10*3/uL (0.00-0.03); Imm Gran Pct Auto 0.3 % (0.0-0.4); Lymphocytes Absolute Auto 1.3 X10*3/uL (1.2-4.9); Lymphocytes Percent Auto 12.4 % (20-40); Mean Corpuscular HGB Conc 32.4 g/dl (31.0-35.0); Mean Corpuscular Hemoglobin 28.6 pg (27.0-33.0); Mean Corpuscular Volume 88.2 fL (80.0-98.0); Mean Platelet Volume 10.1 fL (9.4-12.3); Monocytes Percent Auto 8.9 % (2-11); Neutrophils Absolute Auto 8.3 x10*3/uL (2.0-8.3); Neutrophils Percent Auto 77.2 % (45-73); Platelet Count 337 X10*3/uL (160-400); Red Blood Count 4.68 X10*6/uL (4.20-5.50); Red Cell Distribution Width 12.3 % (11.0-16.0); White Blood Count 10.7 X10*3/uL (4.8-10.8)
[2022-11-09 07:33] LABS: Anion Gap 14 (12-20); Blood Urea Nitrogen 18 mg/dL (9-16); Calcium 9.1 mg/dL (8.4-10.2); Carbon Dioxide 24 mmol/L (22-29); Chloride 107 mmol/L (96-108); Creatinine Clr Calc Pharmacy 67.7; Estimated Glomerular Filt Rate > 60; Glucose Random 96 mg/dL (60-115); Sodium 141 mmol/L (135-145)
--- NOTE | 2022-11-09 08:14 | PC.NURSE ---
pt a&ox3, upon initial assessment pt was speaking on the phone with her son unhooked from alarm security or surveillance monitor and vitals machine, pt seemed to be tremulous while speaking on the phone so rehooked monitors and numbers were out of place so asked pt to sit back so we could reposition her, after repositioning her, vitals became more table. upon auscultation, fine crackles noted across lung field bilaterally but crackles more prominent in left side, call nowak placed within reach.
[2022-11-09 08:31] LABS: Lactate Dehydrogenase 207 U/L (122-220)
[2022-11-09 08:46] LABS: Carcinoembryonic Antigen < 1.73 ng/mL
--- NOTE | 2022-11-09 10:08 | PC.NURSE ---
one episode of vomiting. new linen on bed and pt cleaned up. denies nausea at this time.
--- NOTE | 2022-11-09 10:53 | MHC.CM.PN ---
Met with patient in regards to discharge planning. Patient lives alone, ambulates independently and had no services prior to coming home. Patient still works. Patient is currently on oxygen but does not use at baseline. PCP verified. Patient has a HCP at home and will attempt to obtain a copy. Patient received 3 Moderna vaccines and 1 Pfizer vaccine. IMM explained and signed. Patient's car is in the parking lot and patient will drive herself home when medically stable. Continue to monitor for d/c needs.
[2022-11-09] MEDS: Heparin Sodium,Porcine 5,000 UNIT/ML VIAL 5000 UNIT SUBCUT ×2 (11:09→21:25)
--- NOTE | 2022-11-09 11:10 | PC.NURSE ---
medication administered per provider order.
--- NOTE | 2022-11-09 12:19 | PC.NURSE ---
pt a&ox3, nsr on the cardiac surgeon, pt wondering when/if she will be going for the procedure, let the patient we will update her once we know what the plan is for her.
--- NOTE | 2022-11-09 13:17 | HO.THORCON_ITS ---
History of Present Illness Consult details Consult date: 11/09/22 Narrative: thoracic surgical consult to evaluate for massive left pleural effusion. Patient has a plethora of medical problems and on this admission also was complaining of progressively worsening shortness of breath the last 2-3 weeks time. Chart was reviewed patient evaluated. CT scan of chest is [place] noteworthy for any enormous pleural effusion with almost complete atelectasis of the left lung. PMFSH Past Medical History Medical History Hyperlipidemia Hypertension Surgical History Surgical History No pertinent past surgical history Social History Social History Alcohol intake: never Patient Tobacco Use Status: Never used Tobacco Smoked in Last 30 Days: No Use of substances other than those prescribed or required for medical reasons: No Advance Directives: No Advance Directives Information Provided: No service: No Meds Allergies Allergy/AdvReac Type Severity Reaction Status Date / Time No Known Allergies Allergy Verified 11/08/22 16:00 Active Medications: Current Medications Acetaminophen (Acetaminophen 325 Mg Tablet) 650 mg PO Q6H PRN PRN Reason: Pain, Mild (Pain Scale 1-3) Albuterol/Ipratropium (Albuterol/Iprat 2.5/0.5mg 3 Ml Ampul.Neb) 3 ml INHALE RQ4H PRN PRN Reason: Shortness of Breath/Wheezing Docusate Sodium (Docusate Sodium 100 Mg Capsule) 100 mg PO DAILY PRN PRN Reason: Constipation Heparin Sodium (Porcine) (Heparin Sodium,Porcine 5,000 Unit/Ml Vial) 5,000 unit SUBCUT Q12H [facility] Last Admin: 11/09/22 11:09 Dose: 5,000 unit Ondansetron HCl (Ondansetron Hcl 4 Mg/2 Ml Vial) 4 mg IVPUSH Q8H PRN PRN Reason: Nausea and Vomiting Pharmacy Consult (Consult Rx Perform Med Rec) 1 each MISCELLANE ONCE PRN PRN Reason: Consult order Sodium Chloride (0.9 % Sodium Chloride Flush 3 Ml Syringe) 3 ml IVFLUSH QSHIFT [facility] Last Admin: 11/09/22 11:09 Dose: 3 ml Home Medications Medication Instructions Recorded Confirmed Last Taken Type amlodipine 5 mg tablet 5 mg PO DAILY 12/08/21 11/08/22 11/08/22 History atorvastatin 40 mg tablet 40 mg PO DAILY 12/08/21 11/08/22 11/08/22 History Physical Exam Vital Signs: Vital Signs: Last Vital Signs Temp 97.8 F 11/09/22 11:34 Pulse 98 11/09/22 11:34 Resp 28 H 11/09/22 11:34 BP 139/76 11/09/22 11:34 Pulse Ox 94 11/09/22 11:34 O2 Del Method Nasal Cannula 11/09/22 11:34 O2 Flow Rate 2 11/09/22 11:34 BMI result Body Mass Index 34.2 Const: Other: Elderly frail ill-appearing female. Chest: Other: Breath sounds right normal, essentially no breath sounds left, dull to percussion GI: Other: abdomen corpulent, soft. Results Labs 11/09/22 06:34 11/09/22 06:34 Labs: Abnormal lab results 11/08/22 11/08/22 11/08/22 Range/Units 17:18 17:18 19:22 WBC 11.2 H (4.8-10.8) X10*3/uL Neut % (Auto) (45-73) % Lymph % (Auto) 15.2 L (20-40) % BUN 25 H (9-16) mg/dL Ur Specific [place] >= 1.030 H (1.005-1.025) 11/09/22 11/09/22 Range/Units 06:34 06:34 WBC (4.8-10.8) X10*3/uL Neut % (Auto) 77.2 H (45-73) % Lymph % (Auto) 12.4 L (20-40) % BUN 18 H (9-16) mg/dL Ur Specific [place] (1.005-1.025) Short CBC 11/08/22 11/09/22 Range/Units 17:18 06:34 WBC 11.2 H 10.7 (4.8-10.8) X10*3/uL Hgb 14.4 13.4 (12.0-16.0) g/dl Hct 45.1 41.3 (37.0-47.0) % Plt Count 390 337 (160-400) X10*3/uL BMP 11/08/22 11/09/22 17:18 06:34 Sodium 144 141 Potassium 4.0 4.0 Chloride 105 107 Carbon Dioxide 25 24 BUN 25 H 18 H Creatinine 0.90 0.73 Calcium 9.5 9.1 Liver Function 11/08/22 Range/Units 17:18 Total Bilirubin 0.6 (0.0-1.0) mg/dL AST 16 (5-31) U/L ALT 21 (0-31) U/L Alkaline Phosphatase 104 (39-117) U/L Albumin 3.9 (3.5-5.0) g/dL Urine 11/08/22 Range/Units 19:22 Urine Color Yellow Urine Appearance Clear Urine pH 5.0 (5.0-9.0) Ur Specific [place] >= 1.030 H (1.005-1.025) Urine Protein Trace (Neg-Trace) mg/dL Urine Glucose (UA) Negative (Negative) mg/dL All other labs normal. Assessment and Plan (1) Pleural effusion: Status: Acute (2) Abdominal carcinomatosis: Status: Acute Plan complete whiteout of left hemithorax secondary to the enormous pleural effusion. Patient is to have IR drainage of this. Recommendation is for cyt ologic evaluation to confirm a malignant etiology. 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 Tumor markers should be sent as well as consideration for [employer] flatbed driver consult. Time Spent With Patient Time: Total time managing care of this patient today ____ minutes. Procedures Date of Service Date of Service: 11/09/22
--- NOTE | 2022-11-09 14:04 | P.CNHO_ITS ---
Subjective - Subjective Chief complaint: Consult for: Question of ovarian carcinoma. Patient: new to practice Consult date: 11/09/22 Requesting Physician: Dr. Hugo. Primary Care Provider: Pb Maria III, MD Medical Summary: DIAGNOSIS: Pleural effusion. Peritoneal implants. ? Metastatic ovarian carcinoma. HPI - Consult Narrative Reason for consult: Consult for: Possible Ovarian malignancy. Narrative: Yolanda Bucio is a 77 year old lady, presented to the hospital complaints of abdominal pain. She reported that her abdominal pain been going on for past one week, localized to the right lower quadrant, nonradiating, intermittent, not associated with any nausea or vomiting. Denies any diarrhea constipation. She was also noted to be rather short of breath. This has been ongoing for the past 2 weeks. She denies any cough, no sputum production. No fever or chills, no weight loss. She describes no urinary symptoms and no lower extremity edema. On arrival to the ED patient noted to be tachycardic with a heart rate of 106, blood pressure stable, satting 90-93% on room air Labs are significant for: WBC count of 11.2, INR of 1.1, UA negative. Rest: unremarkable, CT chest as well as abdomen pelvic CT that showed: 1. Large left pleural effusion with collapse of most of the left lung. 2. Small right pleural effusion. 3. Omental cake suspicious for peritoneal carcinomatosis with a small amount of ascites. 4. Other incidental findings as described above. 5. Consider thoracentesis with cytology for diagnosis or biopsy of the omental cake. She had a CTA done today which revealed: 1. No central or proximal segmental pulmonary embolus identified. However, there is complete assessment of the more distal vasculature due to respiratory motion artifact. 2. Redemonstrated large left pleural effusion with collapse of most of the left lung. Trace right pleural effusion. 3. Subcarinal soft tissue density suspicious for travis metastasis given the recently reported findings in the abdomen. past medical history of: 1. Hypertension and 2. Hyperlipidemia. Review of Systems - Constitutional Reports system reviewed and no additional complaints, except as documented, Reports anorexia, Reports body ache(s), Reports fatigue, Reports lack of energy, Reports malaise, Reports weight loss, Denies fever(s) - Eyes Reports system reviewed and no additional complaints, except as documented - ENT Reports system reviewed and no additional complaints, except as documented - Cardiovascular Reports system reviewed and no additional complaints, except as documented - Respiratory Reports no additional respiratory complaints - Gastrointestinal Reports system reviewed and no additional complaints, except as documented - Genitourinary Reports no additional female genitourinary complaints - Musculoskeletal Reports system reviewed and no additional complaints, except as documented - Integumentary/Breasts Skin/Breast: Reports no additional skin complaints - Neurologic Reports system reviewed and no additional complaints, except as documented - Psychiatric Reports system reviewed and no additional complaints, except as documented - Endocrine Reports no additional endocrine complaints - Hematologic/Lymphatic Reports system reviewed and no additional complaints, except as documented - Allergic/Immunologic Reports system reviewed and no additional complaints, except as documented Oncology Screenings - ECOG Performance Status ECOG Performance Status: 1 [facility] Medical History: Medical History (Last Reviewed 11/15/22 @ 14:27 by TU Bhagat) Hyperlipidemia Hypertension Functional capacity: uses cane/walker Patient : No Surgical History: Surgical History (Last Reviewed 11/15/22 @ 14:27 by TU Bhagat) No pertinent past surgical history Social History: Social History (Last Reviewed 11/15/22 @ 14:27 by TU Bhagat) Living Situation History: Household Members: Family Housing: House Do you presently have visiting nurse or other home services: No Tobacco History: Patient Tobacco Use Status: Never used Tobacco Occupation Assessmet: service: No Home Medications and Allergies Current Medications: Current Medications Acetaminophen (Acetaminophen 325 Mg Tablet) 650 mg PO Q6H PRN PRN Reason: Pain, Mild (Pain Scale 1-3) Albuterol/Ipratropium (Albuterol/Iprat 2.5/0.5mg 3 Ml Ampul.Neb) 3 ml INHALE RQ4H PRN PRN Reason: Shortness of Breath/Wheezing Docusate Sodium (Docusate Sodium 100 Mg Capsule) 100 mg PO DAILY PRN PRN Reason: Constipation Heparin Sodium (Porcine) (Heparin Sodium,Porcine 5,000 Unit/Ml Vial) 5,000 unit SUBCUT Q12H [facility] Last Admin: 11/09/22 11:09 Dose: 5,000 unit Ondansetron HCl (Ondansetron Hcl 4 Mg/2 Ml Vial) 4 mg IVPUSH Q8H PRN PRN Reason: Nausea and Vomiting Pharmacy Consult (Consult Rx Perform Med Rec) 1 each MISCELLANE ONCE PRN PRN Reason: Consult order Sodium Chloride (0.9 % Sodium Chloride Flush 3 Ml Syringe) 3 ml IVFLUSH QSHIFT [facility] Last Admin: 11/09/22 11:09 Dose: 3 ml Home Medications Medication Instructions Recorded Confirmed Type amlodipine 5 mg tablet 5 mg PO DAILY 11/15/22 11/15/22 History atorvastatin 40 mg tablet 40 mg PO DAILY 11/15/22 11/15/22 History Allergies Allergy/AdvReac Type Severity Reaction Status Date / Time No Known Allergies Allergy Verified 11/08/22 16:00 Physical Exam Vital signs: Vital Signs Temp 97.8 F 11/09/22 11:34 Pulse 98 11/09/22 11:34 Resp 28 H 11/09/22 11:34 BP 139/76 11/09/22 11:34 Pulse Ox 94 11/09/22 11:34 O2 Del Method Nasal Cannula 11/09/22 11:34 O2 Flow Rate 2 11/09/22 11:34 Intake & Output 11/08/22 11/09/22 11/09/22 18:59 06:59 18:59 Other: Number of Unmeasured Voids 460 Weight 87.543 kg Weight 87.543 kg - Constitutional Present: moderate distress - Routine HEENT Exam Head: Present: normal inspection, normocephalic Eye: Present: normal appearance ENT: Present: mucous membranes moist - Routine Neck Exam Present: supple - Routine Respiratory Exam Present: decreased breath sounds - Routine Cardiovascular Exam Cardiovascular: Present: RRR, S1, S2 - Routine Skin Exam Present: intact, normal turgor - Routine Neurological Exam Present: alert, oriented X3 - Routine Psychiatric Exam Present: depressed Hem/Onc Consult Result - Labs CBC & Chem 7: 11/09/22 06:34 11/09/22 06:34 Labs: Short CBC 11/08/22 11/09/22 Range/Units 17:18 06:34 WBC 11.2 H 10.7 (4.8-10.8) X10*3/uL Hgb 14.4 13.4 (12.0-16.0) g/dl Hct 45.1 41.3 (37.0-47.0) % Plt Count 390 337 (160-400) X10*3/uL BMP 11/08/22 11/09/22 17:18 06:34 Sodium 144 141 Potassium 4.0 4.0 Chloride 105 107 Carbon Dioxide 25 24 BUN 25 H 18 H Creatinine 0.90 0.73 Calcium 9.5 9.1 Liver Function 11/08/22 Range/Units 17:18 Total Bilirubin 0.6 (0.0-1.0) mg/dL AST 16 (5-31) U/L ALT 21 (0-31) U/L Alkaline Phosphatase 104 (39-117) U/L Albumin 3.9 (3.5-5.0) g/dL Urine 11/08/22 Range/Units 19:22 Urine Color Yellow Urine Appearance Clear Urine pH 5.0 (5.0-9.0) Ur Specific [place] >= 1.030 H (1.005-1.025) Urine Protein Trace (Neg-Trace) mg/dL Urine Glucose (UA) Negative (Negative) mg/dL Assessment and Plan Patient Active problem list reviewed?: Yes (1) Abdominal carcinomatosis Status: Acute Assessment and plan: This is a pleasant 77-year-old lady, who presents with abdominal pain and shortness of breath. CT chest as well as abdomen pelvic CT that showed: 1. Large left pleural effusion with collapse of most of the left lung. 2. Small right pleural effusion. 3. Omental cake suspicious for peritoneal carcinomatosis with a small amount of ascites. 4. Other incidental findings as described above. 5. Consider thoracentesis with cytology for diagnosis or biopsy of the omental cake. She had a CTA done today which revealed: 1. No central or proximal segmental pulmonary embolus identified. However, there is complete assessment of the more distal vasculature due to respiratory motion artifact. 2. Redemonstrated large left pleural effusion with collapse of most of the left lung. Trace right pleural effusion. 3. Subcarinal soft tissue density suspicious for travis metastasis given the recently reported findings in the abdomen. My concern is for underlying ovarian carcinoma. Differential diagnosis includes another abdominal/GI malignancy. PLAN: Will proceed with diagnostic and therapeutic thoracentesis to determine cytology of the fluid, as well as to relieve her symptoms. If that is non revealing can proceed with biopsy of 1 of the peritoneal implants. Will check tumor markers. CEA: <1.73. Will check CA 125: 179, and CA 19-9: 12. Will make further plans based upon the above results. Thank you for the consult, Sincerely, Saranya Amaral. CC: Pb Maria. Addendum: Thoracentesis cytology: Adenocarcinoma. Will arrange for a pleurax catheter placement. - Time Spent With Patient Time Spent with Patient (in minutes): 30
--- NOTE | 2022-11-09 14:58 | P.PNIM_ITS ---
Subjective Subjective Date of Service: 11/10/22 Interval History: Complaining of right lower quadrant abdominal pain, vomited breakfast, denies nausea now, complaining of shortness of breath not worsened from before, denies fever chills, no cough, no other acute issues since admission waiting for left thoracocentesis. Review of Systems All other system reviewed and negative. Physical Exam Vital Signs: Vital Signs: Last Vital Signs Temp 97.9 F 11/09/22 14:17 Pulse 93 11/09/22 14:17 Resp 24 H 11/09/22 14:17 BP 160/83 H 11/09/22 14:17 Pulse Ox 94 11/09/22 14:17 O2 Del Method Nasal Cannula 11/09/22 14:17 O2 Flow Rate 2 11/09/22 14:17 BMI result Body Mass Index 34.2 Const: Other: General: awake alert x3,in mild distress due to abdominal pain . Neck supple no JVD. CVS regular rate rhythm, Respiratory lungs diminished breath sounds left base, no respiratory distress, no wheeze, no rhonchi. Gastrointestinal abdomen soft, right lower quadrant tenderness to palpation , bowel sounds audible, no guarding , no rigidity. Extremities no edema. Neuro non focal. Skin no rash Psych appropriate affect Objective Data Active Medications Acetaminophen (Acetaminophen 325 Mg Tablet) 650 mg PO Q6H PRN PRN Reason: Pain, Mild (Pain Scale 1-3) Albuterol/Ipratropium (Albuterol/Iprat 2.5/0.5mg 3 Ml Ampul.Neb) 3 ml INHALE RQ4H PRN PRN Reason: Shortness of Breath/Wheezing Docusate Sodium (Docusate Sodium 100 Mg Capsule) 100 mg PO DAILY PRN PRN Reason: Constipation Heparin Sodium (Porcine) (Heparin Sodium,Porcine 5,000 Unit/Ml Vial) 5,000 unit SUBCUT Q12H [facility] Last Admin: 11/09/22 11:09 Dose: 5,000 unit Documented By: BRENDA Ondansetron HCl (Ondansetron Hcl 4 Mg/2 Ml Vial) 4 mg IVPUSH Q8H PRN PRN Reason: Nausea and Vomiting Pharmacy Consult (Consult Rx Perform Med Rec) 1 each MISCELLANE ONCE PRN PRN Reason: Consult order Sodium Chloride (0.9 % Sodium Chloride Flush 3 Ml Syringe) 3 ml IVFLUSH QSHIFT [facility] Last Admin: 11/09/22 11:09 Dose: 3 ml Documented By: BRENDA Labs 11/09/22 06:34 11/09/22 06:34 Labs: Laboratory Results - last 24 hr 11/08/22 11/08/22 11/08/22 17:18 17:18 17:18 MCV 88.3 MCH 28.2 MCHC 31.9 RDW 12.1 Plt Count 390 MPV 9.5 Immature Gran % (Auto) 0.3 Neut % (Auto) 72.7 Lymph % (Auto) 15.2 L [place] % (Auto) 10.0 Eos % (Auto) 1.4 Baso % (Auto) 0.4 Lymph # (Auto) 1.7 [place] # (Auto) 1.1 Eos # (Auto) 0.2 Baso # (Auto) 0.1 Abs Immat Gran (auto) 0.03 Absolute Neuts (auto) 8.2 Absolute Nucleated RBC 0.000 Nucleated RBC % (auto) 0.0 PT INR Anion Gap 18 Estim Creat Clear Calc 54.9 Estimated GFR > 60 Random Glucose 92 Calcium 9.5 Total Bilirubin 0.6 AST 16 ALT 21 Alkaline Phosphatase 104 Lactate Dehydrogenase Troponin I High Sens B-Natriuretic Peptide 12 Total Protein 7.1 Albumin 3.9 Lipase 12 Carcinoembryonic Ag Urine Color Urine Appearance Urine pH Ur Specific [place] Urine Protein Urine Glucose (UA) Urine Ketones Urine Blood Urine Nitrite Ur Leukocyte Esterase 11/08/22 11/08/22 11/08/22 18:35 19:22 21:34 MCV MCH MCHC RDW Plt Count MPV Immature Gran % (Auto) Neut % (Auto) Lymph % (Auto) [place] % (Auto) Eos % (Auto) Baso % (Auto) Lymph # (Auto) [place] # (Auto) Eos # (Auto) Baso # (Auto) Abs Immat Gran (auto) Absolute Neuts (auto) Absolute Nucleated RBC Nucleated RBC % (auto) PT 12.8 INR 1.1 Anion Gap Estim Creat Clear Calc Estimated GFR Random Glucose Calcium Total Bilirubin AST ALT Alkaline Phosphatase Lactate Dehydrogenase Troponin I High Sens < 2.7 B-Natriuretic Peptide Total Protein Albumin Lipase Carcinoembryonic Ag Urine Color Yellow Urine Appearance Clear Urine pH 5.0 Ur Specific [place] >= 1.030 H Urine Protein Trace Urine Glucose (UA) Negative Urine Ketones 15 Urine Blood Negative Urine Nitrite Negative Ur Leukocyte Esterase Negative 11/09/22 11/09/22 06:34 06:34 MCV 88.2 MCH 28.6 MCHC 32.4 RDW 12.3 Plt Count 337 MPV 10.1 Immature Gran % (Auto) 0.3 Neut % (Auto) 77.2 H Lymph % (Auto) 12.4 L [place] % (Auto) 8.9 Eos % (Auto) 0.7 Baso % (Auto) 0.5 Lymph # (Auto) 1.3 [place] # (Auto) 1.0 Eos # (Auto) 0.1 Baso # (Auto) 0.1 Abs Immat Gran (auto) 0.03 Absolute Neuts (auto) 8.3 Absolute Nucleated RBC 0.000 Nucleated RBC % (auto) 0.0 PT INR Anion Gap 14 Estim Creat Clear Calc 67.7 Estimated GFR > 60 Random Glucose 96 Calcium 9.1 Total Bilirubin AST ALT Alkaline Phosphatase Lactate Dehydrogenase 207 Troponin I High Sens B-Natriuretic Peptide Total Protein Albumin Lipase Carcinoembryonic Ag < 1.73 Urine Color Urine Appearance Urine pH Ur Specific [place] Urine Protein Urine Glucose (UA) Urine Ketones Urine Blood Urine Nitrite Ur Leukocyte Esterase Assessment and Plan (1) Abdominal carcinomatosis: Status: Acute (2) Pleural effusion: Status: Acute Plan 77-year-old female past medical history of hypertension, hyperlipidemia comes into the hospital with complaints of abdominal pain found to have pleural effu scott with left lung collapse #? Left pleural effusion with left lung collapse -? likely in the setting of possible carcinomatosis as seen on imaging -? waiting for thoracocentesis by IR, send fluid for cytology and further evaluation -? Seen by Dr. Amaral further testing ordered to rule out ovarian/pancreatic cancer -? no hypoxia, monitor respiratory status #? abdominal pain likely due to carcinomatosis as seen on imaging studies, follow CA 19 9 and CA 125, follow thoracocentesis fluids study, if negative proceed with biopsy of peritoneal implants Add oxycodone 5mg Q4prn, Continue tylenol, diet as tolerated. Seen by oncologist Dr. Amaral. #? hypertension -? resume amlodipine 5 mg daily follow BP #? hyperlipidemia -? continue statin, stable LFTs ?DVT prophylaxis:? Heparin subQ ?Given patient's need for further evaluation of the large? pleural effusion as well as lung collapse patient will need continued inpatient hospital stay for further management and evaluation by specialists as mentioned above . Time Spent With Patient Time: Total time managing care of this patient today ____ minutes. Quality Stroke Does the patient have a stroke diagnosis?: No VTE Prior VTE?: No VTE Risk Level:: Medical - moderate - high VTE Device Contraindication: Treatment Not Indicated VTE Drug Contraindication: N/A - Med Ordered
--- NOTE | 2022-11-09 15:24 | PC.NURSE ---
attempt to give report, rn not available. will send tiger
--- NOTE | 2022-11-09 16:31 | PC.NURSE ---
report given to im, transport contacted
[2022-11-10] MEDS: 0.9 % Sodium Chloride Flush 3 ML SYRINGE IVFLUSH ×3 (02:56→23:59)
[2022-11-10 03:09] VITALS: BP 113/54; PULSE 82; RESP 20; TEMP 36.4; O2SAT 94
[2022-11-10] MEDS: Acetaminophen 325 MG TABLET 650 MG PO (06:33)
[2022-11-10 07:37] VITALS: BP 129/69; PULSE 86; RESP 17; TEMP 36.4; O2SAT 93
[2022-11-10] MEDS: Atorvastatin Calcium 40 MG TABLET PO (09:33)
--- NOTE | 2022-11-10 09:35 | P.PNTS_ITS ---
Subjective Subjective Date of Service: 11/10/22 Interval history: Uneventful evening. Patient still complaining of shortness of breath. Pigtail catheter to be inserted today. Physical Exam Vital Signs: Vital Signs: Last Vital Signs Temp 97.6 F 11/10/22 07:37 Pulse 86 11/10/22 07:37 Resp 17 11/10/22 07:37 BP 129/69 11/10/22 07:37 Pulse Ox 93 11/10/22 07:37 O2 Del Method Nasal Cannula 11/10/22 07:37 O2 Flow Rate 2 11/10/22 07:37 BMI result Body Mass Index 34.2 Chest: Other: Status quo. No breath sounds left. Procedures Date of Service Date of Service: 11/10/22 Progress Note: A&P Assessment and plan (1) Abdominal carcinomatosis: Status: Acute (2) Pleural effusion: Status: Acute Plan Awaiting interventional radiologic left chest tube placement. Specimens should be sent for cytology. 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 Time Spent With Patient Time: Total time managing care of this patient today ____ minutes. Quality Stroke Does the patient have a stroke diagnosis?: No VTE Prior VTE?: No VTE Risk Level:: Medical - moderate - high VTE Device Contraindication: Treatment Not Indicated VTE Drug Contraindication: N/A - Med Ordered
[2022-11-10] MEDS: Docusate Sodium 100 MG CAPSULE PO (11:21)
--- NOTE | 2022-11-10 13:09 | MHC.CM.PN ---
EMR REVIEWED, PER THORACIC PLAN FOR IR PLACED CHEST TUBE TODAY, NO PLAN FOR D/C AT THIS TIME, ANTIC PT MAY NEED PT EVAL FOR DISPO AND POSSIBLY A NEW VNA, CM WILL CONT TO FOLLOW D/C NEEDS.
[2022-11-10] MEDS: Lidocaine HCl 1 % MPF 5 ML VIAL SUBCUT (14:54)
[2022-11-10 15:11] LABS: MN% 86.9 %; PMN% 13.1 %; RBC Pleural Fluid 0.018 X10*6/uL; WBC Pleural Fluid 1.344 X10*3/uL
[2022-11-10 15:43] LABS: BF Shift QC OK YES
[2022-11-10 15:44] LABS: Lymphocytes Pleural Fluid 56 %; Monocytes Pleural Fluid 10 %; Neutrophils Pleural Fluid 14 %; Other Cells Plerual Fl 20 %
--- NOTE | 2022-11-10 15:51 | P.PNIM_ITS ---
Subjective Subjective Date of Service: 11/10/22 Interval History: Feeling better this morning abdominal pain well controlled, tolerated breakfast no further bouts of nausea, vomiting, complaining of constipation, denies headache, lightheadedness or dizziness, no other acute issues overnight. Review of Systems All other systems reviewed and negative. Physical Exam Vital Signs: Vital Signs: Last Vital Signs Temp 97.6 F 11/10/22 07:37 Pulse 86 11/10/22 07:37 Resp 17 11/10/22 07:37 BP 129/69 11/10/22 07:37 Pulse Ox 93 11/10/22 07:37 O2 Del Method Nasal Cannula 11/10/22 07:37 O2 Flow Rate 2 11/10/22 07:37 BMI result Body Mass Index 34.2 Const: Other: General: awake alert x3,in mild distress due to abdominal pain .? Neck? supple no JVD. CVS? regular rate rhythm, Respiratory lungs diminished breath sounds left base, no respiratory distress, no wheeze, no rhonchi. Gastrointestinal abdomen soft,mild right lower quadrant tenderness to palpation , bowel sounds audible, no guarding , no rigidity. Extremities no edema. Neuro non focal. Skin no rash Psych appropriate affect Objective Data Active Medications Acetaminophen (Acetaminophen 325 Mg Tablet) 650 mg PO Q6H PRN PRN Reason: Pain, Mild (Pain Scale 1-3) Last Admin: 11/10/22 06:33 Dose: 650 mg Documented By: ANTOIC Albuterol/Ipratropium (Albuterol/Iprat 2.5/0.5mg 3 Ml Ampul.Neb) 3 ml INHALE RQ4H PRN PRN Reason: Shortness of Breath/Wheezing Atorvastatin Calcium (Atorvastatin Calcium 40 Mg Tablet) 40 mg PO DAILY [facility] Last Admin: 11/10/22 09:33 Dose: 40 mg Documented By: BROKaty Docusate Sodium (Docusate Sodium 100 Mg Capsule) 100 mg PO DAILY PRN PRN Reason: Constipation Last Admin: 11/10/22 11:21 Dose: 100 mg Documented By: SEA Docusate Sodium (Docusate Sodium 100 Mg Capsule) 200 mg PO DAILY [facility] Last Admin: 11/10/22 12:46 Dose: Not Given Documented By: SEA Non-Admin Reason: Previously Administered Heparin Sodium (Porcine) (Heparin Sodium,Porcine 5,000 Unit/Ml Vial) 5,000 unit SUBCUT Q12H [facility] Last Admin: 11/10/22 10:14 Dose: Not Given Documented By: SEA Non-Admin Reason: patient scheduled for procedure Ondansetron HCl (Ondansetron Hcl 4 Mg/2 Ml Vial) 4 mg IVPUSH Q8H PRN PRN Reason: Nausea and Vomiting Oxycodone HCl (Oxycodone Hcl Immed Release 5 Mg Tablet) 5 mg PO Q6H PRN PRN Reason: Pain, Moderate(Pain Scale 4-6) Pharmacy Consult (Consult Rx Perform Med Rec) 1 each MISCELLANE ONCE PRN PRN Reason: Consult order Sodium Chloride (0.9 % Sodium Chloride Flush 3 Ml Syringe) 3 ml IVFLUSH QSHIFT [facility] Last Admin: 11/10/22 09:34 Dose: 3 ml Documented By: SEA Labs 11/09/22 06:34 11/09/22 06:34 Labs: Laboratory Results - last 24 hr 11/10/22 14:10 Pleural WBC 1.344 Pleural RBC 0.018 Pleural Neutrophils 14 Pleural Lymphocytes 56 Pleural Monocytes 10 Pleural Other Cells 20 Assessment and Plan (1) Abdominal carcinomatosis: Status: Acute (2) Pleural effusion: Status: Acute Plan 77-year-old female past medical history of hypertension, hyperlipidemia comes into the hospital with complaints of abdominal pain found to have pleural effusion with left lung collapse #? Left pleural effusion with left lung collapse Underwent left thoracocentesis, repeat chest x-rays shows persistent moderate effusion or -? likely in the setting of possible carcinomatosis as seen on imaging -? fluid send for cytology , cell count protein and LDH -? Seen by Dr. Amaral further testing ordered to rule out ovarian/pancreatic cancer, Ca 9 T9 and CA 125 pending, CEA less than 1.73 # hypoxic respiratory failure continue oxygen and wean as tolerated home O2 are prior to discharge #? abdominal pain likely due to carcinomatosis as seen on imaging studies, follow CA 19 9 and CA 125, follow thoracocentesis fluids study, if negative proceed with biopsy of peritoneal implants Continue oxycodone 5mg Q4prn, and tylenol, diet as tolerated. Seen by oncologist Dr. Amaral. #? hypertension -? stable BP continue amlodipine 5 mg daily #? hyperlipidemia -? continue statin, stable LFTs # obesity recommend low-calorie diet and exercise ?DVT prophylaxis:? Heparin subQ ?Given patient's need for further evaluation of the large? pleural effusion as well as lung collapse patient will need continued inpatient hospital stay for further management and evaluation by specialists as mentioned above . Time Spent With Patient Time: Total time managing care of this patient today ____ minutes. Quality Stroke Does the patient have a stroke diagnosis?: No VTE Prior VTE?: No VTE Risk Level:: Medical - moderate - high VTE Device Contraindication: Treatment Not Indicated VTE Drug Contraindication: N/A - Med Ordered
[2022-11-10 15:56] VITALS: BP 143/69; PULSE 95; RESP 15; TEMP 36.6; O2SAT 92
[2022-11-10 19:23] VITALS: BP 131/77; PULSE 98; RESP 14; TEMP 36.8; O2SAT 92
[2022-11-10] MEDS: Heparin Sodium,Porcine 5,000 UNIT/ML VIAL 5000 UNIT SUBCUT (21:54)
[2022-11-10 23:54] VITALS: BP 129/63; PULSE 88; RESP 18; TEMP 36.6; O2SAT 96
[2022-11-11 01:41] LABS: LDH Peritoneal Fluid 567 U/L
[2022-11-11 03:35] VITALS: BP 112/57; PULSE 82; RESP 20; TEMP 36.5; O2SAT 94
[2022-11-11 08:00] VITALS: BP 126/59; PULSE 86; RESP 20; TEMP 37.1; O2SAT 92
[2022-11-11] MEDS: Docusate Sodium 100 MG CAPSULE 200 MG PO (08:40)
[2022-11-11] MEDS: Heparin Sodium,Porcine 5,000 UNIT/ML VIAL 5000 UNIT SUBCUT (08:40)
[2022-11-11] MEDS: Atorvastatin Calcium 40 MG TABLET PO (08:40)
[2022-11-11] MEDS: 0.9 % Sodium Chloride Flush 3 ML SYRINGE IVFLUSH (08:41)
[2022-11-11 11:10] VITALS: BP 136/62; PULSE 103; RESP 20; TEMP 36.7; O2SAT 90
--- NOTE | 2022-11-11 12:38 | HO.PM.IMPN ---
Subjective Subjective Date of Service: 11/11/22 Physical Exam Vital Signs: Vital Signs: Last Vital Signs Temp 98.0 F 11/11/22 11:10 Pulse 103 H 11/11/22 11:10 Resp 20 11/11/22 11:10 BP 136/62 11/11/22 11:10 Pulse Ox 90 L 11/11/22 11:10 O2 Del Method Room Air 11/11/22 11:10 O2 Flow Rate 2 11/10/22 07:37 BMI result Body Mass Index 34.2 Objective Data Active Medications Acetaminophen (Acetaminophen 325 Mg Tablet) 650 mg PO Q6H PRN PRN Reason: Pain, Mild (Pain Scale 1-3) Last Admin: 11/10/22 06:33 Dose: 650 mg Documented By: ANTOIC Albuterol/Ipratropium (Albuterol/Iprat 2.5/0.5mg 3 Ml Ampul.Neb) 3 ml INHALE RQ4H PRN PRN Reason: Shortness of Breath/Wheezing Atorvastatin Calcium (Atorvastatin Calcium 40 Mg Tablet) 40 mg PO DAILY [facility] Last Admin: 11/11/22 08:40 Dose: 40 mg Documented By: FRIEDA Docusate Sodium (Docusate Sodium 100 Mg Capsule) 100 mg PO DAILY PRN PRN Reason: Constipation Last Admin: 11/10/22 11:21 Dose: 100 mg Documented By: DOBROB Docusate Sodium (Docusate Sodium 100 Mg Capsule) 200 mg PO DAILY [facility] Last Admin: 11/11/22 08:40 Dose: 200 mg Documented By: FRIEDA Heparin Sodium (Porcine) (Heparin Sodium,Porcine 5,000 Unit/Ml Vial) 5,000 unit SUBCUT Q12H [facility] Last Admin: 11/11/22 08:40 Dose: 5,000 unit Documented By: FRIEDA Ondansetron HCl (Ondansetron Hcl 4 Mg/2 Ml Vial) 4 mg IVPUSH Q8H PRN PRN Reason: Nausea and Vomiting Oxycodone HCl (Oxycodone Hcl Immed Release 5 Mg Tablet) 5 mg PO Q6H PRN PRN Reason: Pain, Moderate(Pain Scale 4-6) Pharmacy Consult (Consult Rx Perform Med Rec) 1 each MISCELLANE ONCE PRN PRN Reason: Consult order Sodium Chloride (0.9 % Sodium Chloride Flush 3 Ml Syringe) 3 ml IVFLUSH QSHIFT [facility] Last Admin: 11/11/22 08:41 Dose: 3 ml Documented By: FRIEDA Labs 11/09/22 06:34 11/09/22 06:34 Labs: Laboratory Results - last 24 hr 11/10/22 11/10/22 11/10/22 14:10 14:10 14:10 Peritoneal LDH 567 Pleural WBC 1.344 Pleural RBC 0.018 Pleural Neutrophils 14 Pleural Lymphocytes 56 Pleural Monocytes 10 Pleural Other Cells 20 Pleural Total Protein 4.0 Assessment and Plan (1) Abdominal carcinomatosis: Status: Acute (2) Pleural effusion: Status: Acute Plan 77-year-old female past medical history of hypertension, hyperlipidemia comes into the hospital with complaints of abdominal pain found to have pleural effusion with left lung collapse #? Left pleural effusion with left lung collapse Underwent left thoracocentesis, repeat chest x-rays shows persistent moderate effusion or -? likely in the setting of possible carcinomatosis as seen on imaging -? fluid send for cytology , cell count protein and LDH -? Seen by Dr. Amaral further testing ordered to rule out ovarian/pancreatic cancer, Ca 9 T9 and CA 125 pending, CEA less than 1.73 # hypoxic respiratory failure continue oxygen and wean as tolerated home O2 are prior to discharge #? abdominal pain likely due to carcinomatosis as seen on imaging studies, follow CA 19 9 and CA 125, follow thoracocentesis fluids study, if negative proceed with biopsy of peritoneal implants Continue oxycodone 5mg Q4prn, and tylenol, diet as tolerated. Seen by oncologist Dr. Amaral. #? hypertension -? stable BP continue amlodipine 5 mg daily #? hyperlipidemia -? continue statin, stable LFTs # obesity recommend low-calorie diet and exercise ?DVT prophylaxis:? Heparin subQ ?Given patient's need for further evaluation of the large? pleural effusion as well as lung collapse patient will need continued inpatient hospital stay for further management and evaluation by specialists as mentioned above . Time Spent With Patient Time: Total time managing care of this patient today ____ minutes. Quality Stroke Does the patient have a stroke diagnosis?: No VTE Prior VTE?: No VTE Risk Level:: Medical - moderate - high VTE Device Contraindication: Treatment Not Indicated VTE Drug Contraindication: N/A - Med Ordered
--- NOTE | 2022-11-11 12:44 | P.DS_ITS ---
DS: Providers Provider Date of Service: 11/11/22 Date of admission: 11/08/22 21:45 Primary care physician: Pb Maria III, MD Consults: 11/08/22 21:43 Consult to Thoracic Surgery Routine Consulting Provider: [facility] Reason for consultation: large pleural effusion with lung collapse concerning for malignancy Has provider been notified: No 11/08/22 21:46 Consult to Hematology / Oncology Routine Consulting Provider: Coty Leyva Reason for consultation: omental cake concerning for malignancy Has provider been notified: No DS: Diagnosis Discharge Diagnosis (1) Abdominal carcinomatosis: Status: Acute (2) Pleural effusion: Status: Acute DS: Summary Hospital Course Hospital Course: Date of Service: 11/08/22 Chief Complaint:? abdominal pain ?77-year-old female past medical history of hypertension and hyperlipidemia comes into the hospital complaints of abdominal pain.? Patient reports that her abdominal pain been going on for past one week, localized to the right lower quadrant, nonradiating, intermittent, not associated with any nausea or vomiting.? Patient was also noted to be? short of breath, when asked about it she said that she has been short of breath for the past 2 weeks.? She denies any cough, no sputum production.? No fever or chills, no weight loss.? Denies any? diarrhea constipation, no urinary symptoms and no lower extremity edema.? On arrival to the ED patient noted to be tachycardic with a heart rate of 106, blood pressure stable, satting 90-93% on room air Labs are significant for WBC count of 11.2, INR of 1.1, labs otherwise unremarkable, UA negative ?patient underwent imaging including CT chest as well as abdomen pelvic CT that showed large left pleural effusion with collapse of most of the left lung, small right pleural effusion, omental cake? suspicious for? peritoneal carcinomatosis with a small amount of ascites, ?patient will be admitted for further management and evaluation 77-year-old female past medical history of hypertension, hyperlipidemia comes into the hospital with complaints of abdominal pain found to have pleural effusion with left lung collapse #? Left pleural effusion with left lung collapse admitted to medical floor, Underwent left thoracocentesis, 1.1 L of cloudy red fluid was drained, repeat chest x-rays shows persistent moderate effusion , fluid consistent with exudate, likely in the setting of possible carcinomatosis as seen on imaging, cytology pending, patient is clinically stable with no shortness of breath no hypoxia and is eager to be discharged home therefore will discharge patient home with recommendations to follow-up with Oncology, thoracic surgery and primary care physician with serial chest x-rays Will eventual need PleurX catheter placement if noted to have recurrent thoracocentesis. - # hypoxic respiratory failure resolved not requiring oxygen. #? abdominal pain likely due to carcinomatosis as seen on imaging studies, abdominal pain resolved patient feeling significantly better tolerating diet, feels Tylenol is helping with pain, follow CA 19 9 and CA 125, outpatient follow-up with Dr. Amaral to obtain cytology report, continue stool softeners and Tylenol diet as tolerated . #? hypertension-?? stable BP continue amlodipine 5 mg daily #? hyperlipidemia,-? continue statin, stable LFTs # obesity recommend low-calorie diet and exercise Time Spent with Patient Time attestation: Total time managing care of this patient today ____ minutes. Discharge coordination time: Greater than 30 minutes Quality: Safe Use of Opioids Does Pt have an Active Cancer Diagnosis on the Problem List?: No Quality: Stroke Does the patient have a stroke diagnosis?: No Physical Exam Vital Signs: Vital Signs: Last Vital Signs Temp 98.0 F 11/11/22 11:10 Pulse 103 H 11/11/22 11:10 Resp 20 11/11/22 11:10 BP 136/62 11/11/22 11:10 Pulse Ox 90 L 11/11/22 11:10 O2 Del Method Room Air 11/11/22 11:10 O2 Flow Rate 2 11/10/22 07:37 BMI result Body Mass Index 34.2 Const: Other: General awake alert x3, resting comfortably in no acute distress. Neck supple no JVD. CVS regular rate rhythm, Respiratory lungs clear to auscultation, diminished left base no respiratory distress, no wheeze, no rhonchi. Gastrointestinal abdomen soft, nontender, bowel sounds audible, no guarding , no rigidity. Extremities no edema. Neuro nonfocal Skin no rash Psych appropriate affect DS: Data Data Completed and Pending Pending studies at discharge: Pending at discharge 11/10/22 14:14 Cytology [PTH] Routine Labs on day of discharge: Laboratory Results - last 24 hr 11/10/22 11/10/22 11/10/22 14:10 14:10 14:10 Peritoneal LDH 567 Pleural WBC 1.344 Pleural RBC 0.018 Pleural Neutrophils 14 Pleural Lymphocytes 56 Pleural Monocytes 10 Pleural Other Cells 20 Pleural Total Protein 4.0 Discharge Plan Discharge Anticipated Discharge Date/Time: 11/11/22 12:34 Patient Disposition: Home, Self-Care Discharge Diagnosis: Left pleural effusion Referrals: Pb Maria III, MD [Primary Care Provider] - 1 Week Discharge Medications: New polyethylene glycol 3350 [Miralax] 17 gram powder in packet 17 g PO DAILY Qty: 100 0RF Continued amlodipine 5 mg tablet 5 mg PO DAILY atorvastatin 40 mg tablet 40 mg PO DAILY Discharge Orders: Discharge Order (Routine); Ordered 11/11/22 Ordered By: Eric Hugo Diet: Advance to usual diet Activity on Discharge: As tolerated Stand Alone Forms: Patient Portal Discharge page Care Plan Goals: Left pleural effusion/omental cake suspicious for peritoneal carcinomatosis with small amount of ascites, take Tylenol for pain control and call Dr. Amaral for test results and further treatment plan Take Metamucil for constipation take high-fiber diet, drink fluids Return to [place] ED if noted to have recurrent shortness of breath,or abdominal pain Labs pending at the time of discharge are cytology report from pleural fluid, CA 19 9, CA 125 Health Concerns: Left pleural effusion/abdominal pain/hypertension Plan of Treatment: Outpatient follow-up with Dr. Saranya Amaral from Oncology, outpatient follow-up with PCP Outpatient follow-up with Dr. Ken Herbert from thoracic surgery to follow-up on pleural fluid Assessment: As above Discharge Date/Time: 11/11/22 13:52
--- NOTE | 2022-11-11 13:12 | MHC.CM.PN ---
Patient has been medically cleared for dc to home today, self care. Last IMM was addressed on 11/09/2022.
[2022-11-11 14:33] LABS: CA-125 179 U/mL (<35)
[2022-11-13 08:19] LABS: Carbohydrate Antigen 19-9 12 U/mL (<34)
== END 2022-11-11 13:52 | disposition home or self-care (01) | DRG 374 ==
LOC: HO.ED 21:23 → HO.EDOVER 21:53 → HO.IMC 11-09 14:59
PROVIDERS: Internal Medicine; Physician Assistant; Radiology Diagnostic Radiology; Radiology Vascular & Interventional Radiology; Registered Nurse Emergency; Admitting Provider Internal Medicine; Emergency Provider Emergency Medicine Emergency Medical Services; PCP Internal Medicine; Visit Provider Hospitalist
DX: C78.6 Secondary malignant neoplasm of retroperitoneum and peritoneum (principal); J96.01 Acute respiratory failure with hypoxia; J90 Pleural effusion, not elsewhere classified; J98.19 Other pulmonary collapse; E78.5 Hyperlipidemia, unspecified; I10 Essential (primary) hypertension; E66.9 Obesity, unspecified; Z68.34 Body mass index [BMI] 34.0-34.9, adult; Z71.3 Dietary counseling and surveillance; Z79.899 Other long term (current) drug therapy
CPT/HCPCS: 32555; 36415; 71046; 71250; 71275; 74177; 80048; 80053; 81003; 82378; 83615; 83690; 83880; 84157; 84484; 85025; 85610; 86301; 86304; 87070; 87073; 87205; 88112; 88305; 88341; 88342; 89051; 93005; 99285; J1643; J1940; J2270; Q9967

== ENCOUNTER → 2022-11-08 18:11 | Outpatient (BNV) | payer MEDICARE, SELFPAY | PROVIDERS: Admitting Provider Internal Medicine; Emergency Provider Emergency Medicine Emergency Medical Services; PCP Internal Medicine; Visit Provider Internal Medicine Cardiovascular Disease | DX: R94.31 Abnormal electrocardiogram [ECG] [EKG] (principal); I45.10 Unspecified right bundle-branch block | CPT/HCPCS: 93010 ==

== ENCOUNTER 2022-11-08 21:45 | Outpatient (BNV) | payer MEDICARE, SELFPAY | END 2022-11-10 13:56 | PROVIDERS: Admitting Provider Internal Medicine; Emergency Provider Emergency Medicine Emergency Medical Services; PCP Internal Medicine; Visit Provider Radiology Diagnostic Radiology | DX: J90 Pleural effusion, not elsewhere classified (principal) | CPT/HCPCS: 32555 ==

== ENCOUNTER → 2022-11-08 21:45 | Outpatient (BNV) | payer MEDICARE, SELFPAY | PROVIDERS: Admitting Provider Internal Medicine; Emergency Provider Emergency Medicine Emergency Medical Services; PCP Internal Medicine; Visit Provider Internal Medicine Medical Oncology | DX: J90 Pleural effusion, not elsewhere classified (principal); R10.32 Left lower quadrant pain; R18.8 Other ascites | CPT/HCPCS: 99222 ==

== ENCOUNTER → 2022-11-08 21:45 | Outpatient (BNV) | payer MEDICARE, SELFPAY | PROVIDERS: Admitting Provider Internal Medicine; Emergency Provider Emergency Medicine Emergency Medical Services; PCP Internal Medicine; Visit Provider Surgery | DX: C76.2 Malignant neoplasm of abdomen (principal); J90 Pleural effusion, not elsewhere classified | CPT/HCPCS: 99223; 99233 ==

== ENCOUNTER → 2022-11-08 21:45 | Outpatient (BNV) | payer MEDICARE, SELFPAY | PROVIDERS: Admitting Provider Internal Medicine; Emergency Provider Emergency Medicine Emergency Medical Services; PCP Internal Medicine; Visit Provider Internal Medicine | DX: C76.2 Malignant neoplasm of abdomen (principal); J90 Pleural effusion, not elsewhere classified | CPT/HCPCS: 99223; 99233; 99239; 99499 ==

== ENCOUNTER 2022-11-15 12:56 | Inpatient (IN) | payer MEDICARE, SELFPAY ==
--- NOTE | ~2022-11-15 | XR_ITS ---
EXAMINATION: XR CHEST CLINICAL INFORMATION: Status post placement of Pleurx catheter COMPARISON: Chest x-ray 11/15/2022, 1:52 PM TECHNIQUE: Frontal portable view of the chest was obtained. 1520 hours FINDINGS: Pleurx catheter over the left chest extending from the left basilar region to the left mid upper lung. Volume of the left pleural effusion is substantially reduced since prior exam. There is still density in the left mid and lower lung and pleural fluid and probable atelectasis. There is no pneumothorax. No midline shift. No pulmonary vascular congestion. Right lung normally aerated. XR/XR chest 1V IMPRESSION: Pleurx catheter over the left chest. Volume of the left pleural effusion is substantially reduced since prior chest x-ray 11/15/2022.
--- NOTE | ~2022-11-15 | XR_ITS ---
EXAMINATION: XR CHEST CLINICAL INFORMATION: Recurrent pleural effusion COMPARISON: Previous chest x-ray most recent October 2022 TECHNIQUE: 2 views of the chest were obtained. FINDINGS: There is almost complete whiteout of the left hemithorax from a large left pleural effusion. This is slightly increased in size from post thoracentesis x-ray 11/10/2022. There is only a small aerated portion of the left upper lobe at the apex. Right lung is clear. There is a small right pleural effusion. There is no pneumothorax. There are degenerative changes of the spine. XR/XR chest 2V IMPRESSION: Large left pleural effusion.
--- NOTE | ~2022-11-15 | IR_ITS ---
PROCEDURE: Ultrasound and fluoroscopic guided insertion of a Pleurx catheter. 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 COMPARISON: Plain film of the chest obtained on the prior day. TECHNIQUE: All elements of maximal sterile barrier technique followed including use of cap, mask, sterile gown, sterile gloves, a sterile full body drape and hand hygiene. Also followed skin preparation with 2% chlorhexidine for cutaneous antisepsis, and sterile ultrasound preparation with sterile gel and probe cover when applicable. The patient was positioned oblique supine on the angiography table. Ultrasound of the patient's left chest showed a large left pleural effusion. An appropriate site for placement of the tube was noted and marked on the skin. The area was prepped and draped. At the planned catheter insertion site into the pleural cavity, 1% lidocaine was injected subcutaneously under ultrasound guidance and extended to the pleural surface. We then anesthetized a subcutaneous track in an inferomedial direction from the planned pleural insertion site. At the pleural insertion site, a small incision was made in the skin with a #11 blade. Through the incision and under ultrasound guidance with permanent recordings and direct visualization of needle entry into the left pleural cavity, a Yueh needle catheter was advanced into the pleural cavity. The needle was removed leaving the catheter in place. Through the catheter, we placed an Amplatz wire, which under fluoroscopy we directed along the inferior margin of the pleural cavity and ultimately it looped as planned in a cephalad direction. Next, at the planned catheter exit site, a small incision was made with a #11 blade. We tunneled the Pleurx catheter from the catheter exit site to the pleural insertion site. We then trimmed the catheter to length. Next, over the Amplatz wire, serial dilatation was performed until the peel-away sheath could be placed. The trimmed Pleurx catheter was then inserted into the peel-away sheath. A saved fluoroscopic image shows perfect positioning of the catheter. We tested the catheter and it drains appropriately. We removed approximately 1300 mL of fluid. The catheter was sutured at its exit site. Absorbable suture was used at the pleural insertion site. Sterile dressings were applied. The patient tolerated the procedure well. FINDINGS: Large left pleural effusion. IR/IR cvc insert central tunnel IMPRESSION: Successful fluoroscopic and CT-guided placement of a left-sided tunneled Pleurx catheter.
--- NOTE | ~2022-11-15 | XR_ITS ---
EXAMINATION: XR CHEST CLINICAL INFORMATION: Left-sided effusion. Post Pleurx catheter. COMPARISON: Previous chest x-ray from yesterday TECHNIQUE: Frontal view of the chest was obtained. FINDINGS: There is a left tunneled chest tube unchanged in position. There is a small residual left pleural effusion at the lung base similar to yesterday's exam. Nodular opacities and atelectasis/consolidation in the left lung appears unchanged. The cardiac and mediastinal contours are stable. The right lung is clear. There is no right pleural effusion. There is no pneumothorax. There are degenerative changes of the spine. XR/XR chest 1V IMPRESSION: Stable position of tunneled left chest tube. Stable small loculated left pleural effusion and nodular opacities and atelectasis/consolidation in the left lung. No pneumothorax or
[2022-11-15 13:15] VITALS: BP 125/83; PULSE 100; RESP 22; TEMP 36; O2SAT 90; BMI 33.1
--- NOTE | 2022-11-15 13:15 | ED.SOB ---
HPI - SOB/Dyspnea General Chief Complaint: General Medical Stated Complaint: L Lung Needs to be Drained Time Seen by Provider: 11/15/22 14:24 Source: patient Mode of arrival: ambulatory Limitations: no limitations History of Present Illness HPI Narrative: 77-year-old female presents with shortness of breath, was told she had a large effusion on chest x-ray outpatient, patient recently in the hospital and had a effusion on the left-hand side drained, they were concerned for possible malignancy. Patient denies nausea, vomiting, abdominal pain, fevers, chills, chest pain, headache, vision changes, dizziness and weakness. Related Data Home Medications Medication Instructions Recorded Confirmed amlodipine 5 mg tablet 5 mg PO DAILY 12/08/21 11/08/22 atorvastatin 40 mg tablet 40 mg PO DAILY 12/08/21 11/08/22 Previous Rx's Medication Instructions Recorded polyethylene glycol 3350 17 gram 17 g PO DAILY #100 ea 11/11/22 oral powder packet (Miralax) Allergies Allergy/AdvReac Type Severity Reaction Status Date / Time No Known Allergies Allergy Verified 11/08/22 16:00 Review of Systems Review of Systems: Constitutional : No Weight loss, No Fever, No Chills, + Fatigue, + Malaise ENT/Mouth : No sore throat, No Rhinorrhea Eyes: No Eye Pain, No Swelling, No Redness Cardiovascular : No Chest Pain, + SOB, + Dyspnea on Exertion, No Orthopnea, No Edema, No Palpitations Respiratory : No Cough, No Sputum, No Wheezing Gastrointestinal : No Nausea, No Vomiting, No Diarrhea, No Constipation, No abdominal Pain, No Hematochezia, No Melena Genitourinary : No Dysuria, No Urinary Frequency, No Hematuria, Musculoskeletal : No joint pain, No Myalgias, No Joint Swelling Skin : No Skin Lesions, No rash Neuro : No Weakness, No Numbness, No Dizziness, No Headache Psych : No Anxiety/Panic, No Depression All other systems reviewed and are negative Yes all other systems are reviewed and are negative [facility] Past Medical History Attestation statement: The following information was validated with the patient. Source: old records reviewed and nursing notes reviewed Medical History Hyperlipidemia Hypertension Surgical History No pertinent past surgical history Social History Social History Household Members: None Housing: House Do you presently have visiting nurse or other home services: No Alcohol intake: never Patient Tobacco Use Status: Never used Tobacco service: No Physical Exam Vital Signs: Vital Signs: Last Vital Signs Temp 97.6 F 11/15/22 14:17 Pulse 95 11/15/22 14:17 Resp 26 H 11/15/22 14:17 BP 140/72 H 11/15/22 14:17 Pulse Ox 91 L 11/15/22 14:17 O2 Del Method Room Air 11/15/22 14:17 BMI result Body Mass Index 33.1 slight hypoxia Appearance: Alert.? Oriented X3.? No acute distress.? SOB reported w/ exertion Head: Normocephalic, atraumatic, no step-offs or deformities Eyes: Pupils equal, round and reactive to light.? Neck: Normal inspection.? Neck supple.? CVS: Normal heart rate and rhythm.? Pulses normal.? Respiratory: No respiratory distress.?Breath sounds diminished b/l L>R Abdomen: Soft and nontender.? Skin: Skin warm and dry.? Normal skin color.? Normal skin turgor.? Extremities: No lower extremity edema.? No calf ttp. 5/5 strength to bilateral upper and lower extremities Back: No midline tenderness, no C-spine tenderness, full range of motion, no CVA tenderness bilaterally Neuro: Oriented X 3.? No motor deficit.? No sensory deficit. CN 2-12 intact Course Course Course Narrative: RME: 77 year old female patient with history of carcinomatosis, suspected ovarian cancer s/p recent drainage of left pleural effusion presenting today with worsening SOB and recurrent pleural effusion seen on chest xray at [facility] today. lung sound diminished on the left side, O2 sat between 89-90%. Plan: repeat 2v chest xray, labs Reevaluation(s) Reevaluation #1: CBC with slight leukocytosis 13.4, chemistry with slightly elevated BUN likely secondary to poor p.o. intake and dehydration however patient tolerating p.o. will not give IV fluids at this time.Patient's x-ray with a large left-sided pleural effusion. Cancer markers from previous visit noted to have an elevated CA 125. Spoke to Dr. Herbert from surgery who states patient would likely benefit from achest tube. Surgery to follow patient while in the hospital. Spoke to hospitalist who will admit patient. Time: 14:48 Medical Decision Making Medical Decision Making [facility] Narrative: 1726 77-year-old female presents for evaluation of shortness of breath told she has a large left-sided pleural effusion on x-ray, recently hospitalized with suspected abdominal carcinomatosis, had a thoracentesis done however a chest tube was never placed according to a general surgeon Dr. Herbert, patient was discharged she did not have a tube in place at time of discharge. It is suspected that this is a exam dated effusion secondary to malignancy, patient's symptoms likely worsening secondary to recurrent effusion. Physical exam bilateral breath sounds diminished, left greater than right. Patient is saturating 90% without ambulation. Patient not oxygen dependent. 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 I do not suspect PE on this patient she recently had a CTA which was negative for PE. Unlikely pneumonia. Plan at this time basic labs, repeat x-ray, will speak to surgery. 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 I do not suspect PE on this patient she recently had a CTA which was negative for PE. Unlikely pneumonia. Admission/Observation Consideration of admission/observation: Escalation of care including admission/observation considered High probability of hospital admission Consult Healthcare Provider Management of the patient was discussed with: Hospitalist and Corporate Travel Manager (General surgery Dr. Herbert) Lab Data [facility] Lab Attestation statement: I reviewed the patient's lab results. 11/15/22 13:33 11/15/22 13:33 Labs: Lab Results 11/15/22 11/15/22 11/15/22 Range/Units 13:33 13:33 13:33 WBC 13.4 H (4.8-10.8) X10*3/uL RBC 4.78 (4.20-5.50) X10*6/uL Hgb 13.7 (12.0-16.0) g/dl Hct 41.3 (37.0-47.0) % MCV 86.4 (80.0-98.0) fL MCH 28.7 (27.0-33.0) pg MCHC 33.2 (31.0-35.0) g/dl RDW 12.2 (11.0-16.0) % Plt Count 433 H D (160-400) X10*3/uL MPV 9.4 (9.4-12.3) fL Immature Gran % (Auto) 0.4 (0.0-0.4) % Neut % (Auto) 80.3 H (45-73) % Lymph % (Auto) 9.1 L (20-40) % [place] % (Auto) 9.9 (2-11) % Eos % (Auto) 0.1 (0-4) % Baso % (Auto) 0.2 (0-2) % Lymph # (Auto) 1.2 (1.2-4.9) X10*3/uL [place] # (Auto) 1.3 H (0.1-1.2) X10*3/uL Eos # (Auto) 0.0 (0.0-0.4) X10*3/uL Baso # (Auto) 0.0 (0.0-0.2) X10*3/uL Abs Immat Gran (auto) 0.05 H (0.00-0.03) X10*3/uL Absolute Neuts (auto) 10.7 H (2.0-8.3) x10*3/uL Absolute Nucleated RBC 0.000 (0.0-0.012) X10*3/uL Nucleated RBC % (auto) 0.0 (0.0-0.2) /100WBC PT 13.5 H (10.0-13.1) SEC INR 1.2 H (0.9-1.1) Sodium 139 (135-145) mmol/L Potassium 3.6 (3.3-5.1) mmol/L Chloride 103 (96-108) mmol/L Anion Gap TNP BUN 28 H (9-16) mg/dL Creatinine 1.03 (0.5-1.4) mg/dL Estim Creat Clear Calc 47.2 Estimated GFR 52 Random Glucose 138 H (60-115) mg/dL Calcium 9.4 (8.4-10.2) mg/dL Total Bilirubin 0.5 (0.0-1.0) mg/dL Direct Bilirubin 0.2 (0.0-0.5) mg/dL AST 23 (5-31) U/L ALT 40 H (0-31) U/L Alkaline Phosphatase 119 H (39-117) U/L Total Protein 6.7 (6.5-8.0) g/dL Albumin 3.3 L (3.5-5.0) g/dL Independent Interpretation I performed an independent interpretation of an: Plain X-Ray Radiology Impression Discussion of test interpretation with radiology: I have reviewed the radiologist's reading. Tests considered The following testing was considered but not selected: Shortness of breath unchanged from last visit, last time patient did have a CTA angio for PE which was negative, at this time I do not suspect PE. Core Measures AMI core measures followed: Yes Measure exclusions: not indicated Critical Care Time Critical Care Time Critical Care Time: Yes Total Critical Care Time: 45 Attestation: I attest to this time spent taking care of the patient, obtaining history, physical, reviewing labs, imaging, speaking to my attending, speaking to specialist. Discharge Plan Discharge Clinical Impression: Pleural effusion, Carcinomatosis, Shortness of breath Patient Disposition: Admitted As Inpatient Prescriptions: No Action polyethylene glycol 3350 [Miralax] 17 gram powder in packet 17 g PO DAILY Qty: 100 0RF amlodipine 5 mg tablet 5 mg PO DAILY atorvastatin 40 mg tablet 40 mg PO DAILY
[2022-11-15 13:38] LABS: MANUAL DIFF FLAG NO
[2022-11-15 13:40] LABS: Basophils Percent Auto 0.2 % (0-2); Eosinophils Percent Auto 0.1 % (0-4); Hematocrit 41.3 % (37.0-47.0); Hemoglobin 13.7 g/dl (12.0-16.0); Imm Gran Abs Auto 0.05 X10*3/uL (0.00-0.03); Imm Gran Pct Auto 0.4 % (0.0-0.4); Lymphocytes Absolute Auto 1.2 X10*3/uL (1.2-4.9); Lymphocytes Percent Auto 9.1 % (20-40); Mean Corpuscular HGB Conc 33.2 g/dl (31.0-35.0); Mean Corpuscular Hemoglobin 28.7 pg (27.0-33.0); Mean Corpuscular Volume 86.4 fL (80.0-98.0); Mean Platelet Volume 9.4 fL (9.4-12.3); Monocytes Absolute Auto 1.3 X10*3/uL (0.1-1.2); Monocytes Percent Auto 9.9 % (2-11); Neutrophils Absolute Auto 10.7 x10*3/uL (2.0-8.3); Neutrophils Percent Auto 80.3 % (45-73); Platelet Count 433 X10*3/uL (160-400); Red Blood Count 4.78 X10*6/uL (4.20-5.50); Red Cell Distribution Width 12.2 % (11.0-16.0); White Blood Count 13.4 X10*3/uL (4.8-10.8)
[2022-11-15 13:45] LABS: INTERNATIONAL NORM RATIO 1.2 (0.9-1.1); Prothrombin Time 13.5 SEC (10.0-13.1)
[2022-11-15 14:17] VITALS: BP 140/72; PULSE 95; RESP 26; TEMP 36.4; O2SAT 91
[2022-11-15 14:19] LABS: Alanine Aminotransferase 40 U/L (0-31); Albumin Level 3.3 g/dL (3.5-5.0); Alkaline Phosphatase 119 U/L (39-117); Aspartate Amino Transferase 23 U/L (5-31); Bilirubin Direct 0.2 mg/dL (0.0-0.5); Bilirubin Total 0.5 mg/dL (0.0-1.0); Blood Urea Nitrogen 28 mg/dL (9-16); Calcium 9.4 mg/dL (8.4-10.2); Chloride 103 mmol/L (96-108); Creatinine Clr Calc Pharmacy 47.2; Estimated Glomerular Filt Rate 52; Glucose Random 138 mg/dL (60-115); Potassium 3.6 mmol/L (3.3-5.1); Sodium 139 mmol/L (135-145); Total Protein 6.7 g/dL (6.5-8.0)
--- NOTE | 2022-11-15 15:09 | PHA.MEDREC ---
Pharmacy Consult ? Medication Reconciliation Pharmacy has completed the medication reconciliation.
[2022-11-15 15:52] VITALS: BP 150/70; PULSE 90; RESP 36; TEMP 36.4; O2SAT 94
--- NOTE | 2022-11-15 15:55 | HO.PM.IMPN ---
Subjective Subjective Date of Service: 11/15/22 Physical Exam Vital Signs: Vital Signs: Last Vital Signs Temp 97.6 F 11/15/22 15:52 Pulse 90 11/15/22 15:52 Resp 36 H 11/15/22 15:52 BP 150/70 H 11/15/22 15:52 Pulse Ox 94 11/15/22 15:52 O2 Del Method Room Air 11/15/22 15:52 BMI result Body Mass Index 33.1 Objective Data Active Medications Acetaminophen (Acetaminophen 325 Mg Tablet) 650 mg PO Q6H PRN PRN Reason: Pain, Mild (Pain Scale 1-3) Amlodipine Besylate (Amlodipine Besylate 5 Mg Tablet) 5 mg PO DAILY [facility]; Protocol Atorvastatin Calcium (Atorvastatin Calcium 40 Mg Tablet) 40 mg PO DAILY [facility] Docusate Sodium (Docusate Sodium 100 Mg Capsule) 100 mg PO DAILY PRN PRN Reason: Constipation Ondansetron HCl (Ondansetron Hcl 4 Mg/2 Ml Vial) 4 mg IVPUSH Q8H PRN PRN Reason: Nausea and Vomiting Pharmacy Consult (Consult Rx Perform Med Rec) 1 each MISCELLANE ONCE PRN PRN Reason: Consult order Sodium Chloride (0.9 % Sodium Chloride Flush 3 Ml Syringe) 3 ml IVFLUSH QSHIFT [facility] Labs 11/15/22 13:33 11/15/22 13:33 Labs: Laboratory Results - last 24 hr 11/15/22 11/15/22 11/15/22 13:33 13:33 13:33 MCV 86.4 MCH 28.7 MCHC 33.2 RDW 12.2 Plt Count 433 H D MPV 9.4 Immature Gran % (Auto) 0.4 Neut % (Auto) 80.3 H Lymph % (Auto) 9.1 L [place] % (Auto) 9.9 Eos % (Auto) 0.1 Baso % (Auto) 0.2 Lymph # (Auto) 1.2 Story # (Auto) 1.3 H Eos # (Auto) 0.0 Baso # (Auto) 0.0 Abs Immat Gran (auto) 0.05 H Absolute Neuts (auto) 10.7 H Absolute Nucleated RBC 0.000 Nucleated RBC % (auto) 0.0 PT 13.5 H INR 1.2 H Anion Gap TNP Estim Creat Clear Calc 47.2 Estimated GFR 52 Random Glucose 138 H Calcium 9.4 Total Bilirubin 0.5 Direct Bilirubin 0.2 AST 23 ALT 40 H Alkaline Phosphatase 119 H Total Protein 6.7 Albumin 3.3 L Assessment and Plan Time Spent With Patient Time: Total time managing care of this patient today ____ minutes. Quality VTE VTE Risk Level:: Medical - moderate - high VTE Device Contraindication: N/A - Device Ordered VTE Drug Contraindication: Treatment Not Indicated
--- NOTE | 2022-11-15 16:00 | P.HPHOSP_ITS ---
History of Present Illness Date of Service: 11/15/22 Attending physician on admission: Wicho Adams Chief Complaint: shortness of breath this is a 77-year-old female who was recently admitted to [facility] with abdominal pain onset of carcinomatosis and left pleural effusion st atus post thoracentesis who returns to the emergency department with shortness of breath. Patient underwent therapeutic and diagnostic paracentesis on November 10 and repeat imaging showed improvement but persistent pleural effusion. fluid studies were consistent with exudate likely related to possible carcinomatosis seen on imaging, cytology pending. She was asymptomatic and not hypoxic and therefore was discharged with plan for outpatient pigtail catheter placement if pleural effusion recurred. She was evaluated by outpatient provider for post hospitalization follow-up and had repeat CXR which showed reaccumulation of pleural effusion. The she was sent back to the hospital for evaluation. she was noted to be tachypneic and hypoxic with oxygen saturation 88-90% on room air. She states that she has been getting progressively more winded over the past several days. She will be admitted for further management of acute respiratory failure secondary to large left pleural effusion. Review of Systems Review of Systems: Yes all other systems are reviewed and are negative Constitutional: Constitutional: Denies chills and Denies fever(s) ENT: Denies dizziness Cardiovascular: Cardiovascular: Denies chest pain, Denies palpitations, Reports dyspnea and Reports dyspnea on exertion Respiratory: Respiratory: Denies cough, Reports dyspnea and Reports dyspnea on exertion Gastrointestinal: Gastrointestinal: Denies abdominal pain and Denies vomiting Neurologic: Denies dizziness Endocrine: Endocrine: Denies palpitations [facility] Medical History Hyperlipidemia Hypertension Surgical History No pertinent past surgical history Social History Household Members: None Housing: House Do you presently have visiting nurse or other home services: No Alcohol intake: never Patient Tobacco Use Status: Never used Tobacco Smoked in Last 30 Days: No Use of substances other than those prescribed or required for medical reasons: No Advance Directives: No Advance Directives Information Provided: No service: No Meds Allergies Allergy/AdvReac Type Severity Reaction Status Date / Time No Known Allergies Allergy Verified 11/08/22 16:00 Active Medications: Current Medications Acetaminophen (Acetaminophen 325 Mg Tablet) 650 mg PO Q6H PRN PRN Reason: Pain, Mild (Pain Scale 1-3) Amlodipine Besylate (Amlodipine Besylate 5 Mg Tablet) 5 mg PO DAILY [facility]; Protocol Atorvastatin Calcium (Atorvastatin Calcium 40 Mg Tablet) 40 mg PO DAILY [facility] Docusate Sodium (Docusate Sodium 100 Mg Capsule) 100 mg PO DAILY PRN PRN Reason: Constipation Ondansetron HCl (Ondansetron Hcl 4 Mg/2 Ml Vial) 4 mg IVPUSH Q8H PRN PRN Reason: Nausea and Vomiting Pharmacy Consult (Consult Rx Perform Med Rec) 1 each MISCELLANE ONCE PRN PRN Reason: Consult order Sodium Chloride (0.9 % Sodium Chloride Flush 3 Ml Syringe) 3 ml IVFLUSH QSHIFT [facility] Home Medications Medication Instructions Recorded Confirmed Last Taken Type amlodipine 5 mg tablet 5 mg PO DAILY 11/15/22 11/15/22 Unknown History atorvastatin 40 mg tablet 40 mg PO DAILY 11/15/22 11/15/22 Unknown History Physical Exam Vital Signs and Narrative: Vital Signs: Last Vital Signs Temp 97.6 F 11/15/22 15:52 Pulse 90 11/15/22 15:52 Resp 36 H 11/15/22 15:52 BP 150/70 H 11/15/22 15:52 Pulse Ox 94 11/15/22 15:52 O2 Del Method Room Air 11/15/22 15:52 BMI result Body Mass Index 33.1 Const: General: cooperative, alert and awake Nutritional Appearance: overweight Orientation/consciousness: patient oriented x3 Resp: Other: diminished breath sounds left side Effort & Inspection: no respiratory distress, tachypneic and no use of acces carson muscles Cardio: Rate: regular rate Heart sounds: S1 normal heart sound present and S2 normal heart sound present GI: Inspection: No distended Palpation (GI): Soft to palpation and nontender Neuro: General: patient oriented x3, moves all extremities and CN's II-XI intact bilaterally Extrem: General: Yes no pedal edema Results Labs 11/15/22 13:33 11/15/22 13:33 Labs: Laboratory Results - last 24 hr 11/15/22 11/15/22 11/15/22 13:33 13:33 13:33 MCV 86.4 MCH 28.7 MCHC 33.2 RDW 12.2 Plt Count 433 H D MPV 9.4 Immature Gran % (Auto) 0.4 Neut % (Auto) 80.3 H Lymph % (Auto) 9.1 L [place] % (Auto) 9.9 Eos % (Auto) 0.1 Baso % (Auto) 0.2 Lymph # (Auto) 1.2 [place] # (Auto) 1.3 H Eos # (Auto) 0.0 Baso # (Auto) 0.0 Abs Immat Gran (auto) 0.05 H Absolute Neuts (auto) 10.7 H Absolute Nucleated RBC 0.000 Nucleated RBC % (auto) 0.0 PT 13.5 H INR 1.2 H Anion Gap TNP Estim Creat Clear Calc 47.2 Estimated GFR 52 Random Glucose 138 H Calcium 9.4 Total Bilirubin 0.5 Direct Bilirubin 0.2 AST 23 ALT 40 H Alkaline Phosphatase 119 H Total Protein 6.7 Albumin 3.3 L Imaging Radiologist's Impressions: Impressions Chest X-Ray 11/15/22 13:51 IMPRESSION: Large left pleural effusion. Assessment and Plan (1) Abdominal carcinomatosis: Status: Acute (2) Pleural effusion: Status: Acute Plan this is a 77-year-old female with history of hypertension, hyperlipidemia, recent admission to [facility] for abdominal pain found to have probable new carcinomatosis and associated left pleural effusion status post thoracentesis who returns with shortness of breath found to have re-accumulation of left side pleural effusion. acute respiratory failure secondary to large left pleural effusion o2 sat 88-90% status post thoracentesis November 10-fluid studies consistent with exudative effusion and likely related to underlying carcinomatosis. pathology pending thoracic surgery consultation, may need chest tube placement. will make NPO at midnight for possible intervention tomorrow supplemental oxygen as needed carcinomatosis planned for outpatient oncology evaluation cytology from pleural fluid pending HTN continue norvasc HLD continue statin dvt ppx - boots, early ambulation in anticipation of possible chest tube placement code status - full code HCP - [facility] attending - dr. adams given re-accumulation of pleural effusion and hypoxia patient will likely require 2 midnight stay in the hospital for management of respiratory failure, close monitoring of respiratory status Time Spent With Patient Time: Total time managing care of this patient today ____ minutes. Quality Stroke Does the patient have a stroke diagnosis?: No VTE Prior VTE?: No VTE Risk Level:: Medical - moderate - high VTE Device Contraindication: N/A - Device Ordered VTE Drug Contraindication: Treatment Not Indicated
[2022-11-15 16:07] VITALS: RESP 28
[2022-11-15] MEDS: 0.9 % Sodium Chloride Flush 3 ML SYRINGE IVFLUSH (17:19)
[2022-11-15 17:27] VITALS: BP 149/76; PULSE 93; RESP 40; TEMP 36.7; O2SAT 92
[2022-11-15 18:25] VITALS: BP 138/63; PULSE 99; RESP 18; TEMP 36.1; O2SAT 92
[2022-11-15 19:38] LABS: Carbon Dioxide 24 mmol/L (22-29)
[2022-11-16] VITALS (7 sets, daily range): BP systolic 115–146; BP diastolic 59–70; PULSE 84–94; RESP 16–18; TEMP 36.1–37.3; O2SAT 90–95
[2022-11-16] MEDS: Acetaminophen 325 MG TABLET 650 MG PO ×3 (03:06→19:01)
[2022-11-16 06:08] LABS: INTERNATIONAL NORM RATIO 1.1 (0.9-1.1); Prothrombin Time 12.9 SEC (10.0-13.1)
[2022-11-16] MEDS: 0.9 % Sodium Chloride Flush 3 ML SYRINGE IVFLUSH (09:33)
[2022-11-16] MEDS: Atorvastatin Calcium 40 MG TABLET PO (09:33)
[2022-11-16] MEDS: amLODIPine Besylate 5 MG TABLET PO (09:33)
--- NOTE | 2022-11-16 12:28 | HO.THORCONS ---
History of Present Illness Consult details Consult date: 11/16/22 Narrative: Patient is a 77-year-old female who was seen last week for admission for shortness of breath. At that time she underwent a thoracentesis and was discharged home. She presents because of reaccumulation of the effusion. The cytology of thoracentesis was negative for neoplasia, although the patient has mild elevation of her marker for auricular therapist Oncology. Chart was reviewed patient evaluated. [facility] Past Medical History Medical History Hyperlipidemia Hypertension Surgical History Surgical History No pertinent past surgical history Social History Social History Household Members: Family Housing: House Do you presently have visiting nurse or other home services: No Alcohol intake: never Patient Tobacco Use Status: Never used Tobacco service: No Meds Allergies Allergy/AdvReac Type Severity Reaction Status Date / Time No Known Allergies Allergy Verified 11/08/22 16:00 Active Medications: Current Medications Acetaminophen (Acetaminophen 325 Mg Tablet) 650 mg PO Q6H PRN PRN Reason: Pain, Mild (Pain Scale 1-3) Last Admin: 11/16/22 10:20 Dose: 650 mg Amlodipine Besylate (Amlodipine Besylate 5 Mg Tablet) 5 mg PO DAILY [facility]; Protocol Last Admin: 11/16/22 09:33 Dose: 5 mg Atorvastatin Calcium (Atorvastatin Calcium 40 Mg Tablet) 40 mg PO DAILY [facility]PL[facility] BY [facility] Last Admin: 11/16/22 09:33 Dose: 40 mg Docusate Sodium (Docusate Sodium 100 Mg Capsule) 100 mg PO DAILY PRN PRN Reason: Constipation Ondansetron HCl (Ondansetron Hcl 4 Mg/2 Ml Vial) 4 mg IVPUSH Q8H PRN PRN Reason: Nausea and Vomiting Pharmacy Consult (Consult Rx Perform Med Rec) 1 each MISCELLANE ONCE PRN PRN Reason: Consult order Sodium Chloride (0.9 % Sodium Chloride Flush 3 Ml Syringe) 3 ml IVFLUSH QSHIFT REPLACED BY [facility] Last Admin: 11/16/22 09:33 Dose: 3 ml Home Medications Medication Instructions Recorded Confirmed Last Taken Type amlodipine 5 mg tablet 5 mg PO DAILY 11/15/22 11/15/22 Unknown History atorvastatin 40 mg tablet 40 mg PO DAILY 11/15/22 11/15/22 Unknown History Physical Exam Vital Signs: Vital Signs: Last Vital Signs Temp 97.0 F 11/16/22 07:46 Pulse 90 11/16/22 07:46 Resp 16 11/16/22 07:46 BP 125/60 11/16/22 07:46 Pulse Ox 92 11/16/22 07:46 O2 Del Method Room Air 11/16/22 07:46 BMI result Body Mass Index 33.1 Chest: Other: No breath sounds left side. Results Labs 11/15/22 13:33 11/15/22 13:33 Labs: Abnormal lab results 11/15/22 11/15/22 11/15/22 Range/Units 13:33 13:33 13:33 WBC 13.4 H (4.8-10.8) X10*3/uL Plt Count 433 H D (160-400) X10*3/uL Neut % (Auto) 80.3 H (45-73) % Lymph % (Auto) 9.1 L (20-40) % [place] # (Auto) 1.3 H (0.1-1.2) X10*3/uL Abs Immat Gran (auto) 0.05 H (0.00-0.03) X10*3/uL Absolute Neuts (auto) 10.7 H (2.0-8.3) x10*3/uL PT 13.5 H (10.0-13.1) SEC INR 1.2 H (0.9-1.1) BUN 28 H (9-16) mg/dL Random Glucose 138 H (60-115) mg/dL ALT 40 H (0-31) U/L Alkaline Phosphatase 119 H (39-117) U/L Albumin 3.3 L (3.5-5.0) g/dL Short CBC 11/15/22 Range/Units 13:33 WBC 13.4 H (4.8-10.8) X10*3/uL Hgb 13.7 (12.0-16.0) g/dl Hct 41.3 (37.0-47.0) % Plt Count 433 H D (160-400) X10*3/uL BMP 11/15/22 13:33 Sodium 139 Potassium 3.6 Chloride 103 Carbon Dioxide 24 BUN 28 H Creatinine 1.03 Calcium 9.4 Liver Function 11/15/22 Range/Units 13:33 Total Bilirubin 0.5 (0.0-1.0) mg/dL Direct Bilirubin 0.2 (0.0-0.5) mg/dL AST 23 (5-31) U/L ALT 40 H (0-31) U/L Alkaline Phosphatase 119 H (39-117) U/L Albumin 3.3 L (3.5-5.0) g/dL All other labs normal. Assessment and Plan (1) Shortness of breath: Status: Acute (2) Pleural effusion: Status: Acute Plan Patient is scheduled for interventional radiologic pigtail catheter placement. Recommend sending the fluid for cytology again. In the meantime, consider auricular therapist cyst-oncology consult, based on CT scan findings of omental caking. If indeed the patient has a malignant left pleural effusion, once the drainage is minimal, consider pleurodesis. To follow. Time Spent With Patient Time: Total time managing care of this patient today ____ minutes. Procedures Date of Service Date of Service: 11/16/22
--- NOTE | 2022-11-16 14:23 | HO.PM.IMPN ---
Subjective Subjective Date of Service: 11/16/22 Interval History: seen and examined this morning follow up for left pleural effusion no overnight events. no shortness of breath at rest plan for Plurex cath this morning Review of Systems Review of Systems: Yes all other systems are reviewed and are negative Constitutional Constitutional: Denies chills and Denies fever(s) ENT Ears, Nose, Mouth, and Throat: Denies dizziness Cardiovascular Cardiovascular: Denies chest pain, Denies palpitations, Reports dyspnea and Reports dyspnea on exertion Respiratory Respiratory: Denies cough, Reports dyspnea and Reports dyspnea on exertion Gastrointestinal Gastrointestinal: Denies abdominal pain, Denies nausea and Denies vomiting Neurologic Neurologic: Denies dizziness Endocrine Endocrine: Denies palpitations Physical Exam Vital Signs: Vital Signs: Last Vital Signs Temp 96.9 F 11/16/22 14:06 Pulse 84 11/16/22 14:06 Resp 16 11/16/22 14:06 BP 115/59 L 11/16/22 14:06 Pulse Ox 95 11/16/22 14:06 O2 Del Method Nasal Cannula 11/16/22 14:06 O2 Flow Rate 2 11/16/22 14:06 BMI result Body Mass Index 33.1 Const: General: cooperative, alert and awake Nutritional Appearance: overweight Orientation/consciousness: patient oriented x3 Resp: Other: diminished breath sounds left side Effort & Inspection: no respiratory distress and no use of accessory muscles Cardio: Rate: regular rate Heart sounds: S1 normal heart sound present and S2 normal heart sound present GI: Inspection: No distended Palpation (GI): Soft to palpation and nontender Neuro: General: patient oriented x3, moves all extremities and CN's II-XI intact bilaterally Extrem: General: Yes no pedal edema Objective Data Active Medications Acetaminophen (Acetaminophen 325 Mg Tablet) 650 mg PO Q6H PRN PRN Reason: Pain, Mild (Pain Scale 1-3) Last Admin: 11/16/22 10:20 Dose: 650 mg Documented By: MARY Amlodipine Besylate (Amlodipine Besylate 5 Mg Tablet) 5 mg PO DAILY [facility]; Protocol Last Admin: 11/16/22 09:33 Dose: 5 mg Documented By: MARY Atorvastatin Calcium (Atorvastatin Calcium 40 Mg Tablet) 40 mg PO DAILY [facility] Last Admin: 11/16/22 09:33 Dose: 40 mg Documented By: MARY Docusate Sodium (Docusate Sodium 100 Mg Capsule) 100 mg PO DAILY PRN PRN Reason: Constipation Ondansetron HCl (Ondansetron Hcl 4 Mg/2 Ml Vial) 4 mg IVPUSH Q8H PRN PRN Reason: Nausea and Vomiting Pharmacy Consult (Consult Rx Perform Med Rec) 1 each MISCELLANE ONCE PRN PRN Reason: Consult order Sodium Chloride (0.9 % Sodium Chloride Flush 3 Ml Syringe) 3 ml IVFLUSH QSHIFT [facility] Last Admin: 11/16/22 09:33 Dose: 3 ml Documented By: MARY Labs 11/15/22 13:33 11/15/22 13:33 Labs: Laboratory Results - last 24 hr 11/16/22 05:45 PT 12.9 INR 1.1 Assessment and Plan (1) Abdominal carcinomatosis: Status: Acute (2) Pleural effusion: Status: Acute Plan This is a 77-year-old female with history of hypertension, hyperlipidemia, recent admission to [facility] for abdominal pain found to have probable new carcinomatosis and associated left pleural effusion status post thoracentesis who returns with shortness of breath found to have re-accumulation of left side pleural effusion. acute respiratory failure secondary to large left pleural effusion o2 sat 88-90% status post thoracentesis November 10-fluid studies consistent with exudative effusion and likely related to underlying carcinomatosis. 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 adams requires ongoing inpatient hospitalization for management of new chest to, hypoxic respiratory failure close respiratory monitoring Time Spent With Patient Time: Total time managing care of this patient today ____ minutes. Quality Stroke Does the patient have a stroke diagnosis?: No VTE Prior VTE?: No VTE Risk Level:: Medical - moderate - high VTE Device Contraindication: N/A - Device Ordered VTE Drug Contraindication: Treatment Not Indicated
--- NOTE | 2022-11-16 15:53 | MHC.CM.PN ---
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 PT VERIFIES PCP IS HITESH CRUZ AND HCP IS SISTER MIGUEL. D/CPLAN: HOME VS HOME W/NEW VNA, NEIGHBOR JENNIFER WILL TRANSPORT
[2022-11-16] MEDS: Docusate Sodium 100 MG CAPSULE PO (19:01)
[2022-11-17] MEDS: Acetaminophen 325 MG TABLET 650 MG PO (01:28)
[2022-11-17 01:32] VITALS: BP 140/63; PULSE 85; RESP 18; TEMP 36.5; O2SAT 94
[2022-11-17 07:56] VITALS: BP 145/83; PULSE 89; RESP 20; TEMP 36.1; O2SAT 96
[2022-11-17] MEDS: Atorvastatin Calcium 40 MG TABLET PO (08:58)
[2022-11-17] MEDS: amLODIPine Besylate 5 MG TABLET PO (08:58)
--- NOTE | 2022-11-17 09:05 | MHC.HEMONC ---
Orders for Pleurex catheter draining supplies sent to [facility] per Dr Amaral.
[2022-11-17] MEDS: 0.9 % Sodium Chloride Flush 3 ML SYRINGE IVFLUSH (09:51)
--- NOTE | 2022-11-17 12:17 | P.DS_ITS ---
DS: Providers Provider Date of Service: 11/17/22 Date of admission: 11/15/22 15:51 Date of discharge: 11/17/22 Primary care physician: Pb Maria III, MD Consults: 11/15/22 15:54 Consult to Thoracic Surgery Routine Consulting Provider: Ken Herbert Reason for consultation: recurrent left pleural effusion Has provider been notified: Yes Attending physician on discharge: [place] Discharging clinician: Jory House DS: Diagnosis Discharge Diagnosis (1) Abdominal carcinomatosis: Status: Acute (2) Pleural effusion: Status: Acute DS: Summary Hospital Course Hospital Course: From H&P on the day of admission this is a 77-year-old female who was recently admitted to [facility] with abdominal pain onset of carcinomatosis and left pleural effusion status post thoracentesis who returns to the emergency department with shortness of breath.? Patient underwent therapeutic and diagnostic paracentesis on November 10 and repeat imaging showed improvement but persistent pleural effusion. ? fluid studies were consistent with exudate likely related to possible carcinomatosis seen on imaging, cytology pending.? She was asymptomatic and not hypoxic and therefore was discharged with plan for outpatient pigtail catheter placement if pleural effusion recurred. ? She was evaluated by outpatient provider for post hospitalization follow-up and had repeat CXR which showed reaccumulation of pleural effusion.? The she was sent back to the hospital for evaluation.? she was noted to be tachypneic and hypoxic with oxygen saturation 88-90% on room air.? She states that she has been getting progressively more winded over the past several days. She will be admitted for further management of acute respiratory failure secondary to large left pleural effusion. acute respiratory failure secondary to large left pleural effusion. o2 sat 88- 90% on admission. she had undergone thoracentesis November 10-fluid studies consistent with exudative effusion and likely related to underlying carcinomatosis. cytology has now returned positive for adenocarcinoma. she underwent plurex catheter placement by IR 11/16, 1300 cc drained, repeat CXR showed volume of pleural effusion substantially reduced. She was able to be weaned off of supplemental oxygen and respiratory symptoms have improved. She will be discharged home with [facility] to drain catheter three times weekly to start. She will follow up with onoclogy as outpatient for further workup related to malignant pleural effusion and abdominal carcinomatosis. Time Spent with Patient Time attestation: Total time managing care of this patient today ____ minutes. Discharge coordination time: Greater than 30 minutes Quality: Safe Use of Opioids Does Pt have an Active Cancer Diagnosis on the Problem List?: Yes Opioid Measure Date for [facility] Report: 10/18/22 Opioid Measure Time for [facility] Report: 12:40 Quality: Stroke Does the patient have a stroke diagnosis?: No Physical Exam Vital Signs: Vital Signs: Last Vital Signs Temp 97.0 F 11/17/22 07:56 Pulse 89 11/17/22 07:56 Resp 20 11/17/22 07:56 BP 145/83 H 11/17/22 07:56 Pulse Ox 96 11/17/22 07:56 O2 Del Method Nasal Cannula 11/17/22 07:56 O2 Flow Rate 2 11/17/22 07:56 BMI result Body Mass Index 33.1 Const: General: cooperative, alert and awake Nutritional Appearance: overweight Orientation/consciousness: patient oriented x3 Resp: Other: diminished breath sounds left side plurex cath left anterior chest wall, dressing c/d/i Effort & Inspection: normal respiratory effort, able to speak in complete sentences, no respiratory distress and no use of accessory muscles Cardio: Rate: regular rate Heart sounds: S1 normal heart sound present and S2 normal heart sound present GI: Inspection: No distended Palpation (GI): Soft to palpation and nontender Neuro: General: patient oriented x3, moves all extremities and CN's II-XI intact bilaterally Extrem: General: Yes no pedal edema DS: Data Data Completed and Pending Completed studies during hospitalization [Text1]: Procedures Drainage of Left Pleural Cavity, Percutaneous Approach (11/08/22) Discharge Plan Discharge Anticipated Discharge Date/Time: 11/17/22 12:30 Patient Disposition: Home Health Service Discharge Diagnosis: acute respiratory failure with hypoxia malignant pleural effusion s/p plurex catheter Referrals: Pb Maria III, MD [Primary Care Provider] - 1 Week Saranya Amaral MD [Physician] - 1 Week Discharge Medications: New oxycodone 5 mg Tablet 5 mg PO Q6H PRN (Reason: Pain, Moderate(Pain Scale 4-6)) Qty: 14 0RF Rx Instructions: Partial Fill upon patient request. docusate sodium 100 mg Capsule 100 mg PO DAILY 30 Days Qty: 30 0RF polyethylene glycol 3350 17 gram Powder In Packet 17 g PO DAILY 30 Days Qty: 30 0RF Rx Instructions: hold for diarrhea Continued atorvastatin 40 mg tablet 40 mg PO DAILY amlodipine 5 mg tablet 5 mg PO DAILY Discharge Orders: Discharge Order (Routine); Ordered 11/17/22 Ordered By: Jory House Activity on Discharge: As tolerated Stand Alone Forms: Patient Portal Discharge page Care Plan Goals: see below Health Concerns: malignant pleural effusion Plan of Treatment: you will be discharged home with Visiting nurses to drain the plurex catheter three times per week or as needed follow up with Dr. Amaral of oncology - you have appointment scheduled November 30 at 1:30 liver function test show mild elevation - recommend outpatient repeat testing can take oxycodone every 6 hours as needed for severe abdominal pain Assessment: see discharge summary
[2022-11-17 12:35] VITALS: O2SAT 92
[2022-11-17] MEDS: polyethylene glycoL 3350 17 GM POWD.PACK PO (12:36)
--- NOTE | 2022-11-17 12:53 | MHC.CM.PN ---
DP: PT HAS BEEN MEDICALLY CLEARED FOR DC HOME WITH NEW [facility] FOR PLUREX CATH MANAGEMENT. RN AWARE AND SUPPLIES TO BE SENT HOME WITH PT. PROVIDER AWARE THE [facility] WILL NOT BE ABLE TO SEE UNTIL EARLY NEXT WEEK. PT HAS OWN RIDE HOME
== END 2022-11-17 14:17 | disposition home health service (06) | DRG 374 ==
LOC: HO.ED 15:24 → HO.EDOVER 15:57 → HO.S3 16:37
PROVIDERS: Physician Assistant; Radiology Vascular & Interventional Radiology; Admitting Provider Physician Assistant Medical; Emergency Provider Emergency Medicine; PCP Internal Medicine; Visit Provider Physician Assistant Medical
PROC: 0W9B30Z Drainage of Left Pleural Cavity with Drainage Device, Percutaneous Approach (ICD-10-PCS; principal; 2022-11-16 10:00)
DX: C78.6 Secondary malignant neoplasm of retroperitoneum and peritoneum (principal); J96.01 Acute respiratory failure with hypoxia; J91.0 Malignant pleural effusion; E78.5 Hyperlipidemia, unspecified; I10 Essential (primary) hypertension; Z79.899 Other long term (current) drug therapy
CPT/HCPCS: 32550; 36415; 36558; 71045; 71046; 76942; 80048; 80076; 85025; 85610; 99152; 99153; 99285; C1729; C1751; C1769

== ENCOUNTER 2022-11-15 15:51 | Outpatient (BNV) | payer MEDICARE, SELFPAY | END 2022-11-16 11:55 | PROVIDERS: Admitting Provider Physician Assistant Medical; Emergency Provider Emergency Medicine; PCP Internal Medicine; Visit Provider Radiology Vascular & Interventional Radiology | DX: C76.2 Malignant neoplasm of abdomen (principal) | CPT/HCPCS: 36558 ==

== ENCOUNTER → 2022-11-15 15:51 | Outpatient (BNV) | payer MEDICARE, SELFPAY | PROVIDERS: Admitting Provider Physician Assistant Medical; Emergency Provider Emergency Medicine; PCP Internal Medicine; Visit Provider Surgery | DX: R06.02 Shortness of breath (principal); J90 Pleural effusion, not elsewhere classified | CPT/HCPCS: 99223 ==

== ENCOUNTER → 2022-11-15 15:51 | Outpatient (BNV) | payer MEDICARE, SELFPAY | PROVIDERS: Admitting Provider Physician Assistant Medical; Emergency Provider Emergency Medicine; PCP Internal Medicine; Visit Provider Physician Assistant Medical | DX: C76.2 Malignant neoplasm of abdomen (principal); J90 Pleural effusion, not elsewhere classified | CPT/HCPCS: 99223; 99233; 99239 ==

== ENCOUNTER → 2022-11-30 13:10 | Outpatient (BNV) | payer MEDICARE, SELFPAY | PROVIDERS: PCP Internal Medicine; Visit Provider Internal Medicine Medical Oncology | DX: C80.1 Malignant (primary) neoplasm, unspecified (principal) | CPT/HCPCS: 99214 ==

== ENCOUNTER 2022-11-30 15:26 | Outpatient (REF) | payer MEDICARE, SELFPAY ==
--- NOTE | ~2022-11-30 | XR_ITS ---
EXAMINATION: XR CHEST CLINICAL INFORMATION: Pleuritic catheter insertion, history of serous papillary carcinoma of the peritoneum. COMPARISON: Chest radiograph 11/17/2022. TECHNIQUE: 2 views of the chest were obtained. FINDINGS: Stable positioning of a left-sided pleural catheter. Slightly decreased loculated left-sided pleural effusion as well as associated patchy and nodular opacities in the left lung. Clear right lung. No pneumothorax. No acute osseous abnormalities. XR/XR chest 2V IMPRESSION: 1. Slightly decreased loculated left-sided pleural effusion. 2. Patchy and nodular opacities in the left lung are also slightly decreased. 3. Stable positioning of left-sided pleural catheter.
== END 2022-11-30 15:27 | disposition home or self-care (01) ==
LOC: HO.XRAY 15:26
PROVIDERS: Visit Provider Internal Medicine Medical Oncology
DX: J90 Pleural effusion, not elsewhere classified (principal)
CPT/HCPCS: 71046

== ENCOUNTER 2022-12-14 01:19 | Inpatient (IN) | payer MEDICARE, SELFPAY ==
--- NOTE | ~2022-12-14 | CT_ITS ---
EXAMINATION: CT HEAD WITHOUT CONTRAST CLINICAL INFORMATION: Left-sided weakness. Right gaze paralysis. COMPARISON: None. TECHNIQUE: Contiguous axial imaging was performed from the skull base to vertex without intravenous contrast. This CT examination was performed using dose optimization techniques as appropriate, variously including the following: * Automated exposure control * Adjustment of mA and/or kV according to patient size (this includes techniques or standardized protocols for targeted exams where dose is matched to indication/reason for exam; i.e. extremities or head) Use of iterative reconstruction technique DLP: 1167 mGy-cm. FINDINGS: Loss of urena to white matter differentiation of the right occipital lobe along the FUSE ASSEMBLER territory. There is no evidence of acute intracranial hemorrhage. No abnormal mass effect or midline shift is seen. No extra-axial fluid collections are identified. No hydrocephalus. Proportional prominence of the ventricles and sulcal spaces is consistent with mild volume loss. Patchy periventricular and deep white matter hypoattenuation is consistent with mild small vessel ischemic changes. The osseous structures and soft tissues are normal. Opacification of the left sphenoid sinus. The mastoid air cells and visualized portions of the paranasal sinuses are otherwise well aerated. CT/CT head for stroke IMPRESSION: Loss of urena to white matter differentiation of the right occipital lobe along the FUSE ASSEMBLER territory. This critical result was discussed with King Gomez MD by telephone at 12/14/2022 1:39 AM and it was ascertained that the content and urgency of the report was understood at the time of direct communication.
--- NOTE | ~2022-12-14 | XR_ITS ---
EXAMINATION: XR CHEST CLINICAL INFORMATION: Weakness. Stroke. COMPARISON: 11/30/2022 TECHNIQUE: Frontal view of the chest was obtained. FINDINGS: Lung volumes are low. Bilateral airspace opacities involving the mid to lower lungs. Small right pleural effusion. Left-sided chest tube remains in place. No pneumothorax. The cardiomediastinal silhouette is unchanged. XR/XR chest 1V IMPRESSION: Small right pleural effusion is increased from prior. Bilateral mid to lower lung airspace opacities are also increased. This could represent edema or infectious/inflammatory process.
--- NOTE | 2022-12-14 01:23 | ECG_ITS ---
Test Reason : ? STROKE Blood Pressure : / mmHG Vent. Rate : 106 BPM Atrial Rate : 106 BPM P-R Int : 142 ms QRS Dur : 118 ms QT Int : 340 ms P-R-T Axes : 082 004 030 degrees QTc Int : 451 ms Sinus tachycardia Low voltage QRS Right bundle branch block Inferior infarct , age undetermined Abnormal ECG When compared with ECG of 08-NOV-2022 18:23, ST elevation now present in Inferior leads T wave inversion more evident in Anterior leads Heart rate has increased Referred By: King Gomez Electronically Signed By:ARTIS QUEZADA
--- NOTE | 2022-12-14 01:25 | ED.WEAKNESS ---
HPI - Weakness General Chief complaint: Stroke Stated complaint: stroke Time Seen by Provider: 12/14/22 01:22 Source: patient Mode of arrival: EMS Limitations: no limitations History of Present Illness HPI Narrative: 77-year-old female who presents emergency department for evaluation of sudden onset of left arm and left leg weakness. The information came from the patient's sister and niece who are here in the emergency department. 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 The patient has a left PleurX catheter to drain recurrent effusions. The patient's sister has been staying with the patient and states that around 00:30 hours she was trying to help the patient out of bed and noted that the patient was very weak and was unable to move her left side . An ambulance was called and she was brought to the emergency department for evaluation. According to the family, the patient was placed in hospice today and the patient does not want aggressive treatment. Patient has been taking MS Contin 30 mg q.12 hours and oxycodone 5 mg every 4 hours as needed for breakthrough pain. Related Data Home Medications Medication Instructions Recorded Confirmed amlodipine 5 mg tablet 5 mg PO DAILY 11/15/22 11/30/22 atorvastatin 40 mg tablet 40 mg PO DAILY 11/15/22 11/30/22 tramadol 50 mg tablet 50 mg PO BEDTIME PRN pain 12/11/22 12/11/22 Previous Rx's Medication Instructions Recorded docusate sodium 100 mg capsule 100 mg PO DAILY Constipation 30 11/17/22 days #30 caps oxycodone 5 mg tablet 5 mg PO Q6H PRN Pain, 11/17/22 Moderate(Pain Scale 4-6) #14 tabs polyethylene glycol 3350 17 gram 17 g PO DAILY 30 days #30 ea 11/17/22 oral powder packet oxycodone 5 mg tablet 5 mg PO Q6H PRN Breakthrough Pain, 11/30/22 Moderate #60 tabs morphine 30 mg tablet,extended 30 mg PO Q12H #60 tabs 12/11/22 release (MS Contin) Allergies Allergy/AdvReac Type Severity Reaction Status Date / Time No Known Allergies Allergy Verified 11/30/22 13:33 Review of Systems Review of Systems: Yes all other systems are reviewed and are negative [facility] Past Medical History [facility] Narrative: Past medical history: Serous adenocarcinoma gynecologic source, 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 Social history: Currently lives at home, her sister staying with her. Medical History Hyperlipidemia Hypertension Surgical History No pertinent past surgical history Family History Family History Mother Lung cancer Maternal Aunt Breast CA Social History Social History Household Members: Family Housing: House Do you presently have visiting nurse or other home services: No Alcohol intake: unknown Patient Tobacco Use Status: Never used Tobacco Smoked in Last 30 Days: No Use of substances other than those prescribed or required for medical reasons: No Advance Directives: No Advance Directives Information Provided: No service: No Physical Exam Vital Signs: Vital Signs: Last Vital Signs Temp 99.5 F 12/14/22 01:29 Pulse 105 H 12/14/22 01:52 Resp 25 H 12/14/22 01:52 BP 101/56 L 12/14/22 01:52 Pulse Ox 92 12/14/22 01:52 O2 Del Method Nasal Cannula 12/14/22 01:52 O2 Flow Rate 3 12/14/22 01:52 Oxygen Flow Rate 3 12/14/22 01:29 BMI result Body Mass Index 31.0 Vital signs revealed an elevated pulse of 105 an O2 saturation of 92% on 2 L via nasal cannula otherwise undermined Exam: General: Awake, alert in no distress, patient has a right case preference and left-sided weak Head: Normocephalic, atraumatic EENT: PERRL, Lids normal, sclera normal, conjunctiva normal, nose normal , ears normal, throat without erythema or exudates Neck: Supple, no adenopathy, trachea midline and nontender Lung: breath sounds symmetric, no wheezing, rales or rhonchi Chest: symmetric movement, nontender Heart: regular rate and rhythm, normal S1, S2 no murmurs or rubs Abdomen: soft, non-tender, nondistended, normal bowel sounds Back: no vertebral tenderness, no CVAT Extremities: no deformities, moves all extremities symmetrically Skin: no rashes, no lesion, normal color and warmth Neuro: Awake, alert, oriented, normal speech, right gaze preference, unable to move left upper lower extremity Psych: Pleasant, cooperative NIH Stroke Scale Internal: Initial- Upon Arrival Level of Consciousness: Alert Level of Consciousness Questions: Answers both questions correctly Level of Consciousness Commands: Performs both tasks correctly Best Gaze: Partial gaze palsy Visual: No visual loss Facial Palsy: Normal Motor Arm (Right): No drift Motor Arm (Left): No movement Motor Leg (Right): No drift Motor Leg (Left): No movement Limb Ataxia: Absent Sensory: Mild to moderate sensory loss Best Language: No aphasia Dysarthia: Normal Extinction and Inattention: No abnormality Score: 10 Medical Decision Making Medical Decision Making MDM Narrative: 77-year-old female who presents emergency department for evaluation of sudden onset of left arm and left leg weakness. 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 The patient presented with left sided weakness with onset at 00:30 hours. Patient's presentation was concerning for stroke and she was sent immediately to CT scan stroke workup was initiated. When the family arrived, I had a discussion with the family and the patient. They were all in agreement at the patient will wants hospice with no further treatment. I did discuss this with the covering hospitalist, Dr. Mora. Given her new stroke, the patient will be admitted for comfort measures only. The patient is not a tPA candidate for clot retrieval candidate since she is being made comfort measures only secondary to her metastatic ovarian cancer. Differential Diagnosis Differential Diagnoses: The differential diagnosis associated with the presentation includes Differential diagnosis includes was not limited to stroke, cerebral bleed, cerebral tumor with mass effect, electrolyte abnormality, anemia, infectious process Admission/Observation Consideration of admission/observation: Escalation of care including admission/observation considered Consult Healthcare Provider Management of the patient was discussed with: Hospitalist (Dr. Mora) Lab Data MDM Lab Attestation statement: I reviewed the patient's lab results. My interpretation patient's laboratory evaluation is as follows: WBC elevated 12,300, platelets elevated 436,000. PT/INR normal. BUN elevated at 56 with an elevated creatinine 1.26. Glucose elevated 149. AST ALT elevated 58 and 32, alk-phos elevated 197. CK elevated 213, high sensitive troponin I elevated 7085. 12/14/22 01:47 12/14/22 01:47 Labs: Lab Results 12/14/22 12/14/22 12/14/22 Range/Units 01:22 01:23 01:47 WBC 12.3 H (4.8-10.8) X10*3/uL RBC 4.47 (4.20-5.50) X10*6/uL Hgb 12.3 (12.0-16.0) g/dl Hct 39.1 (37.0-47.0) % MCV 87.5 (80.0-98.0) fL MCH 27.5 (27.0-33.0) pg MCHC 31.5 (31.0-35.0) g/dl RDW 13.3 (11.0-16.0) % Plt Count 436 H (160-400) X10*3/uL MPV 9.5 (9.4-12.3) fL Immature Gran % (Auto) 0.5 H (0.0-0.4) % Neut % (Auto) 82.1 H (45-73) % Lymph % (Auto) 5.8 L (20-40) % [place] % (Auto) 11.2 H (2-11) % Eos % (Auto) 0.2 (0-4) % Baso % (Auto) 0.2 (0-2) % Lymph # (Auto) 0.7 L (1.2-4.9) X10*3/uL [place] # (Auto) 1.4 H (0.1-1.2) X10*3/uL Eos # (Auto) 0.0 (0.0-0.4) X10*3/uL Baso # (Auto) 0.0 (0.0-0.2) X10*3/uL Abs Immat Gran (auto) 0.06 H (0.00-0.03) X10*3/uL Absolute Neuts (auto) 10.1 H (2.0-8.3) x10*3/uL Absolute Nucleated RBC 0.000 (0.0-0.012) X10*3/uL Nucleated RBC % (auto) 0.0 (0.0-0.2) /100WBC PT (11.1-13.3) SEC Whole Blood PT 13.6 H (11.1-13.5) sec INR (0.9-1.1) Whole Blood INR 1.1 (0.9-1.1) APTT (26.0-36.4) SEC Sodium (135-145) mmol/L Potassium (3.3-5.1) mmol/L Chloride (96-108) mmol/L Carbon Dioxide (22-29) mmol/L Anion Gap (12-20) BUN (9-16) mg/dL Creatinine (0.5-1.4) mg/dL Estim Creat Clear Calc Estimated GFR POC Glucose 165 H (60-115) mg/dL Random Glucose (60-115) mg/dL Calcium (8.4-10.2) mg/dL Magnesium (1.6-2.6) mg/dL Total Bilirubin (0.0-1.0) mg/dL Direct Bilirubin (0.0-0.5) mg/dL AST (5-31) U/L ALT (0-31) U/L Alkaline Phosphatase (39-117) U/L Total Creatine Kinase (26-140) U/L Troponin I High Sens (<3.5-17.0) ng/L Total Protein (6.5-8.0) g/dL Albumin (3.5-5.0) g/dL 12/14/22 12/14/22 12/14/22 Range/Units 01:47 01:47 01:47 WBC (4.8-10.8) X10*3/uL RBC (4.20-5.50) X10*6/uL Hgb (12.0-16.0) g/dl Hct (37.0-47.0) % MCV (80.0-98.0) fL MCH (27.0-33.0) pg MCHC (31.0-35.0) g/dl RDW (11.0-16.0) % Plt Count (160-400) X10*3/uL MPV (9.4-12.3) fL Immature Gran % (Auto) (0.0-0.4) % Neut % (Auto) (45-73) % Lymph % (Auto) (20-40) % [place] % (Auto) (2-11) % Eos % (Auto) (0-4) % Baso % (Auto) (0-2) % Lymph # (Auto) (1.2-4.9) X10*3/uL [place] # (Auto) (0.1-1.2) X10*3/uL Eos # (Auto) (0.0-0.4) X10*3/uL Baso # (Auto) (0.0-0.2) X10*3/uL Abs Immat Gran (auto) (0.00-0.03) X10*3/uL Absolute Neuts (auto) (2.0-8.3) x10*3/uL Absolute Nucleated RBC (0.0-0.012) X10*3/uL Nucleated RBC % (auto) (0.0-0.2) /100WBC PT 12.9 (11.1-13.3) SEC Whole Blood PT (11.1-13.5) sec INR 1.1 (0.9-1.1) Whole Blood INR (0.9-1.1) APTT 25.1 L (26.0-36.4) SEC Sodium 140 (135-145) mmol/L Potassium 5.0 (3.3-5.1) mmol/L Chloride 106 (96-108) mmol/L Carbon Dioxide 24 (22-29) mmol/L Anion Gap 15 (12-20) BUN 56 H (9-16) mg/dL Creatinine 1.26 (0.5-1.4) mg/dL Estim Creat Clear Calc 40.0 Estimated GFR 41 POC Glucose (60-115) mg/dL Random Glucose 149 H (60-115) mg/dL Calcium 9.3 (8.4-10.2) mg/dL Magnesium 2.4 (1.6-2.6) mg/dL Total Bilirubin 0.5 (0.0-1.0) mg/dL Direct Bilirubin 0.3 (0.0-0.5) mg/dL AST 58 H (5-31) U/L ALT 32 H (0-31) U/L Alkaline Phosphatase 197 H (39-117) U/L Total Creatine Kinase 218 H (26-140) U/L Troponin I High Sens 7085.3 H* D (<3.5-17.0) ng/L Total Protein 6.3 L (6.5-8.0) g/dL Albumin 3.0 L (3.5-5.0) g/dL Independent Interpretation I performed an independent interpretation of an: EKG Interpretation: My independent interpretation of the patient's 12 EKG done at 0141 is as follows: Sinus tachycardia with rate of 106, prolonged QRS of 180 milliseconds consistent with a right bundle-branch block, Q-wave in 3, no ST segment elevation, no ST segment depression Radiology Impression Discussion of test interpretation with radiology: I have reviewed the radiologist's reading. Radiologist Impression: CT head for stroke IMPRESSION: Loss of urena to white matter differentiation of the right occipital lobe along the [employer] territory. This critical result was discussed with King Gomez MD by telephone at 12/14/2022 1:39 AM and it was ascertained that the content and urgency of the report was understood at the time of direct communication. Dictated By:Stevan Baldwin MD Independent Historian Clinical information obtained from an independent historian. History obtained from or confirmed by: Other (Sister and niece) External Record Review External record reviewed: Office record (Oncology office note) Chronic Conditions Patient?s care impacted by: Other (Metastatic ovarian cancer, metastatic to pleural space and abdomen) Critical Care Time Critical Care Time Critical Care Time: Yes Total Critical Care Time: 35 Attestation: Critical Care: The patient was critically ill with a high probability of imminent or life threatening deterioration. I spent greater than 30 minutes of discontinuous time evaluating the patient,delivering critical care at the bedside, discussing and evaluating pertinent data with consultants. Critical care time does not include time spent performing separately billable procedures or teaching. Total time spent performing critical care was 35 minutes. Discharge Plan Discharge Clinical Impression: Stroke, Primary cancer of ovary with widespread metastatic disease, Comfort measures only status Patient Disposition: Admitted As Inpatient Prescriptions: No Action atorvastatin 40 mg tablet 40 mg PO DAILY amlodipine 5 mg tablet 5 mg PO DAILY oxycodone 5 mg Tablet 5 mg PO Q6H PRN (Reason: Pain, Moderate(Pain Scale 4-6)) Qty: 14 0RF Rx Instructions: Partial Fill upon patient request. docusate sodium 100 mg Capsule 100 mg PO DAILY 30 Days Qty: 30 0RF polyethylene glycol 3350 17 gram Powder In Packet 17 g PO DAILY 30 Days Qty: 30 0RF Rx Instructions: hold for diarrhea oxycodone 5 mg Tablet 5 mg PO Q6H PRN (Reason: Breakthrough Pain, Moderate) Qty: 60 0RF Rx Instructions: Partial Fill upon patient request. tramadol 50 mg tablet 50 mg PO BEDTIME PRN (Reason: pain) morphine [MS Contin] 30 mg Tablet Extended Release 30 mg PO Q12H Qty: 60 0RF Rx Instructions: Partial Fill upon patient request.
[2022-12-14 01:26] LABS: Prothrombin Time Whole Bld POC 13.6 sec (11.1-13.5); ~PT, ~INR - Anti Coag Clinic 1.1 (0.9-1.1)
[2022-12-14 01:27] LABS: Glucose, Whole Blood 165 mg/dL (60-115)
[2022-12-14 01:29] VITALS: BP 100/60; BP 101/56; PULSE 107; PULSE 110; RESP 21; TEMP 37.5; O2SAT 90; BMI 31.0
[2022-12-14 01:52] VITALS: BP 101/56; PULSE 105; RESP 25; O2SAT 92
[2022-12-14 01:52] LABS: Basophils Percent Auto 0.2 % (0-2); Eosinophils Percent Auto 0.2 % (0-4); Hematocrit 39.1 % (37.0-47.0); Hemoglobin 12.3 g/dl (12.0-16.0); Imm Gran Abs Auto 0.06 X10*3/uL (0.00-0.03); Imm Gran Pct Auto 0.5 % (0.0-0.4); Lymphocytes Absolute Auto 0.7 X10*3/uL (1.2-4.9); Lymphocytes Percent Auto 5.8 % (20-40); MANUAL DIFF FLAG NO; Mean Corpuscular HGB Conc 31.5 g/dl (31.0-35.0); Mean Corpuscular Hemoglobin 27.5 pg (27.0-33.0); Mean Corpuscular Volume 87.5 fL (80.0-98.0); Mean Platelet Volume 9.5 fL (9.4-12.3); Monocytes Absolute Auto 1.4 X10*3/uL (0.1-1.2); Monocytes Percent Auto 11.2 % (2-11); Neutrophils Absolute Auto 10.1 x10*3/uL (2.0-8.3); Neutrophils Percent Auto 82.1 % (45-73); Platelet Count 436 X10*3/uL (160-400); Red Blood Count 4.47 X10*6/uL (4.20-5.50); Red Cell Distribution Width 13.3 % (11.0-16.0); White Blood Count 12.3 X10*3/uL (4.8-10.8)
--- NOTE | 2022-12-14 01:53 | MHC.EDTECH ---
Patient arrived by ambulance stroke INR obtained per DR. Maier request. patient had a POC obtained. patient was changed into hospital attire patient placed on the telemetry monitor vitals and EKG taken.
[2022-12-14 02:01] LABS: INTERNATIONAL NORM RATIO 1.1 (0.9-1.1); Prothrombin Time 12.9 SEC (11.1-13.3)
[2022-12-14 02:04] LABS: Partial Thromboplastin Time 25.1 SEC (26.0-36.4)
[2022-12-14 02:05] LABS: Stroke Lab Use COMPLETE
[2022-12-14 02:18] LABS: Alanine Aminotransferase 32 U/L (0-31); Alkaline Phosphatase 197 U/L (39-117); Anion Gap 15 (12-20); Aspartate Amino Transferase 58 U/L (5-31); Bilirubin Direct 0.3 mg/dL (0.0-0.5); Bilirubin Total 0.5 mg/dL (0.0-1.0); Blood Urea Nitrogen 56 mg/dL (9-16); Calcium 9.3 mg/dL (8.4-10.2); Carbon Dioxide 24 mmol/L (22-29); Chloride 106 mmol/L (96-108); Estimated Glomerular Filt Rate 41; Glucose Random 149 mg/dL (60-115); Magnesium 2.4 mg/dL (1.6-2.6); Sodium 140 mmol/L (135-145); Total Protein 6.3 g/dL (6.5-8.0)
--- NOTE | 2022-12-14 02:54 | PC.NURSE ---
per MD Gomez pt is to be comfort measures only per family. pt had hospice consultation at home yesterday morning with sister and niece. pt's wish is to naturally. pt wants no treatment or intervention for her cancer diagnosis. per take pt off sample clerk, discontinue documentation of vital signs, and make patient as comfortable as possible without any medical interventions aside from prn pain medications.
[2022-12-14 02:56] VITALS: BP 137/75; PULSE 94; RESP 22; O2SAT 94
--- NOTE | 2022-12-14 03:14 | P.HPHOSP_ITS ---
History of Present Illness Date of Service: 12/14/22 Chief Complaint: Left sided weakness This is a 77-year-old female with pertinent history of stage IV serous ovarian carcinoma, chronic hypoxemic respiratory failure due to left-sided pleural effusion in the setting of carcinomatosis status post PleurX catheter, essential hypertension who was brought to the emergency department for evaluation of sudden onset left arm and left leg weakness. Patient unable to provide history. History obtained from family at bedside, chart review and ER provider. Patient's sister and niece at bedside stated that around 00:30 as there were trying to help the patient out of bed, did notice that patient was unable to move her left side. Also noted right-sided gaze. As per family, hospice was contacted on the day of presentation to focus on quality of life and make her comfortable. Unable to obtain review of systems. Review of Systems Review of Systems: Yes Unobtainable due to mental condition and Unobtainable due to mental status PMFSH Medical History Abdominal carcinomatosis Hyperlipidemia Hypertension Pleural effusion Primary cancer of ovary with widespread metastatic disease Family History Mother Lung cancer Maternal Aunt Breast CA Surgical History No pertinent past surgical history Social History Household Members: Family Housing: House Do you presently have visiting nurse or other home services: No Alcohol intake: unknown Patient Tobacco Use Status: Never used Tobacco Smoked in Last 30 Days: No Use of substances other than those prescribed or required for medical reasons: No Advance Directives: No Advance Directives Information Provided: No service: No Meds Allergies Allergy/AdvReac Type Severity Reaction Status Date / Time No Known Allergies Allergy Verified 11/30/22 13:33 Home Medications Medication Instructions Recorded Confirmed Last Taken Type amlodipine 5 mg tablet 5 mg PO DAILY 11/15/22 11/30/22 Unknown History atorvastatin 40 mg tablet 40 mg PO DAILY 11/15/22 11/30/22 Unknown History tramadol 50 mg tablet 50 mg PO BEDTIME PRN pain 08/14/23 08/14/23 Unknown History Physical Exam Vital Signs and Narrative: Vital Signs: Last Vital Signs Temp 99.5 F 12/14/22 01:29 Pulse 94 12/14/22 02:56 Resp 22 H 12/14/22 02:56 BP 137/75 12/14/22 02:56 Pulse Ox 94 12/14/22 02:56 O2 Del Method Nasal Cannula 12/14/22 02:56 O2 Flow Rate 3 12/14/22 02:56 Oxygen Flow Rate 3 12/14/22 01:29 BMI result Body Mass Index 31.0 Elderly female lying in bed on supplemental oxygen Neck supple, no JVD Regular rate and rhythm, S1-S2 heard Regular breath sounds bilaterally, no wheezing or crackles appreciated Abdomen soft nontender, no guarding, no rigidity Patient is awake, alert and oriented to self and place ; strength reduced in left upper and lower extremity, right gaze preference Psych: Normal mood No pedal edema Results Labs 12/14/22 01:47 12/14/22 01:47 Labs: Laboratory Results - last 24 hr 12/14/22 12/14/22 12/14/22 01:22 01:23 01:47 MCV 87.5 MCH 27.5 MCHC 31.5 RDW 13.3 Plt Count 436 H MPV 9.5 Immature Gran % (Auto) 0.5 H Neut % (Auto) 82.1 H Lymph % (Auto) 5.8 L [place] % (Auto) 11.2 H Eos % (Auto) 0.2 Baso % (Auto) 0.2 Lymph # (Auto) 0.7 L [place] # (Auto) 1.4 H Eos # (Auto) 0.0 Baso # (Auto) 0.0 Abs Immat Gran (auto) 0.06 H Absolute Neuts (auto) 10.1 H Absolute Nucleated RBC 0.000 Nucleated RBC % (auto) 0.0 PT Whole Blood PT 13.6 H INR Whole Blood INR 1.1 APTT Anion Gap Estim Creat Clear Calc Estimated GFR POC Glucose 165 H Random Glucose Calcium Magnesium Total Bilirubin Direct Bilirubin AST ALT Alkaline Phosphatase Total Creatine Kinase Total Protein Albumin 12/14/22 12/14/22 01:47 01:47 MCV MCH MCHC RDW Plt Count MPV Immature Gran % (Auto) Neut % (Auto) Lymph % (Auto) [place] % (Auto) Eos % (Auto) Baso % (Auto) Lymph # (Auto) [place] # (Auto) Eos # (Auto) Baso # (Auto) Abs Immat Gran (auto) Absolute Neuts (auto) Absolute Nucleated RBC Nucleated RBC % (auto) PT 12.9 Whole Blood PT INR 1.1 Whole Blood INR APTT 25.1 L Anion Gap 15 Estim Creat Clear Calc 40.0 Estimated GFR 41 POC Glucose Random Glucose 149 H Calcium 9.3 Magnesium 2.4 Total Bilirubin 0.5 Direct Bilirubin 0.3 AST 58 H ALT 32 H Alkaline Phosphatase 197 H Total Creatine Kinase 218 H Total Protein 6.3 L Albumin 3.0 L Imaging Radiologist's Impressions: Impressions Head CT 12/14/22 01:35 IMPRESSION: Loss of urena to white matter differentiation of the right occipital lobe along the DIGITAL CONTENT PRODUCER territory. This critical result was discussed with King Gomez MD by telephone at 12/14/2022 1:39 AM and it was ascertained that the content and urgency of the report was understood at the time of direct communication. Chest X-Ray 12/14/22 02:04 IMPRESSION: Small right pleural effusion is increased from prior. Bilateral mid to lower lung airspace opacities are also increased. This could represent edema or infectious/inflammatory process. Assessment and Plan (1) Primary cancer of ovary with widespread metastatic disease: Status: Acute (2) Acute CVA (cerebrovascular accident): Status: Acute Plan This is a 77-year-old female with pertinent history of stage IV serous ovarian carcinoma, chronic hypoxemic respiratory failure due to left-sided pleural effusion in the setting of carcinomatosis status post PleurX catheter, essential hypertension who was brought to the emergency department for evaluation of sudden onset left arm and left leg weakness. #. Serous ovarian it adeno carcinoma stage IV #. Acute CVA with left-sided residual paralysis #. Chronic hypoxemic respiratory failure due to left-sided pleural effusion with collapse of the left lung status post PleurX catheter #. Essential hypertension #. NSTEMI -discussed with family at bedside and patient about goals of care. It was communicated that patient would like to focus on quality of life and would like to be made comfortable. They understand that treatment is futile in the setting of metastatic cancer. Patient is comfort measures only and will be admitted to medicine floor with IV morphine drip and IV Ativan p.r.n.. Hospice was contacted by family on the day of presentation but patient lives by herself and will be unable to take care of herself at home. Consulting pillowcase maker to contact hospice for safe disposition Time Spent With Patient Time: Total time managing care of this patient today ____ minutes. Quality Stroke Does the patient have a stroke diagnosis?: Yes Reason for No Anti-thrombotic by Day Two: Medication refused VTE Prior VTE?: No VTE Risk Level:: Medical - moderate - high VTE Device Contraindication: Treatment Not Indicated VTE Drug Contraindication: Treatment Not Indicated
--- NOTE | 2022-12-14 05:37 | PC.NURSE ---
patient asleep comfortably on stretcher respirations even and unlabored - equal chest rise and fall, - report called to overflow RN.
--- NOTE | 2022-12-14 06:46 | PC.NURSE ---
Assumed care at 0600. Pt came via stretcher, awake with left sided droop,weakness and slurred speech. Settled in bed. Comfort measures given. C/o of dryness to mouth. Given mouth swab. Denies any pain. Hard of hearing. Uses hearing aid. Bed alarm activated. Purewick in use.
[2022-12-14] MEDS: 0.9 % Sodium Chloride Flush 3 ML SYRINGE IVFLUSH ×2 (07:48→16:16)
--- NOTE | 2022-12-14 08:15 | MHC.EDTECH ---
Repositioned patient with assistance (Cassandra hide salter). Pure wick put in place. Patient request oral swabs. Светлана.
--- NOTE | 2022-12-14 09:33 | PC.NURSE ---
patient a&o upon this nurse assessing patient she was asking for PO, this nurse performed mouth care- notified Dr. Maldonado of pt request, repeat swallow eval was performed and pt noted to have delayed swallow/multiple swallows but was able to swallow without cough- Dr. Maldonado was notified of this. Upon speaking with patient this nurse was standing to the patients left side and the patient had a right gaze and had to be directed to the left to see this nurse, pt has notable weakness to left upper/lower extremity- pt able to move extremities but unable to lift/hold on left side. Pt currently speaking in full clear sentences, has been incontinent-bed change performed- pure wick applied, pt turned/positioned to comfort. Morphine INTELLIGENCE CLERK pump had been ordered but not administered during the night- this nurse called the pharmacy to begin mixing and will administer when it arrives. This nurse also spoke with Dr. Maldonado about RESOURCES REPRESENTATIVE vs hospice as patient currently seems too alert to be on RESOURCES REPRESENTATIVE. dr. Maldonado to review the chart and speak with the family. Family and the family living educator are in the room reviewing end of life documents. Call nowak within reach, will continue to monitor.
--- NOTE | 2022-12-14 10:43 | PHA.MEDREC ---
Pharmacy Consult ? Medication Reconciliation Pharmacy has completed the medication reconciliation. Spoke to patient's family to confirm meds. Patient's daughter, Komal, knows most meds.
--- NOTE | 2022-12-14 10:44 | PC.NURSE ---
Morphine VISUAL STYLIST pump this nurse spoke with Dr. Maldonado about the VISUAL STYLIST pump, Dr. Maldonado stated he will d/c the pump as the patient is comfortable at this time- a&ox3, this nurse requested a PRN morphine IVP if it is needed. Dr. Maldonado to come and talk with family.
--- NOTE | 2022-12-14 10:56 | MHC.CM.PN ---
IMM 12/14/22, EMR REVIEWED, PT ADMITTED WLEFT SIDED WEAKNESS, PT HAD SIGNED ON [facility] YESTERDAY 12/13, CM MET W/PT AND SISTER MIGUEL, PT ALERT AND ORIENTED AND REPORTS PT'S SISTER HAS BEEN STAYING W/HER, PT WOULD LIKE TO RETURN HOME ON HOSPICE HOWEVER 24HR CARE WILL NEED TO BE ARRANGED PT'S SISTER MIGUEL IS HER CAREGIVER AND HAVING DIFFICULTY CARING FOR HER AT HOME AND DOES NOT FEEL SHE CAN DO IT ALONE, PER SISTER PT DOES HAVE SOME FUNDS AND CM CONTACTED NANCY RUBIO W/[facility] [phone] WHO CAN PROVIDE LIVE IN [facility] WHILE PT IS ON HOSPICE, NANCY IS MTG W/PT'S NIECE SANAZ KESSLER [phone] WHO IS A NURSE AND ALTERNATE HCP. HCP AND MOLST WILL BE OBTAINED FROM [facility], PCP ON FILE IS DC PLAN: HOME W/[facility]UMP OF [facility] AND 24HR CARE AT HOME, PT WILL LIKELY NEED BLS TRANSPORT HOME.
--- NOTE | 2022-12-14 10:58 | HO.PM.IMPN ---
Subjective Subjective Date of Service: 12/14/22 Interval History: unable to stand Physical Exam Vital Signs: Vital Signs: Last Vital Signs Temp 99.5 F 12/14/22 01:29 Pulse 94 12/14/22 02:56 Resp 22 H 12/14/22 02:56 BP 137/75 12/14/22 02:56 Pulse Ox 94 12/14/22 02:56 O2 Del Method Nasal Cannula 12/14/22 02:56 O2 Flow Rate 3 12/14/22 02:56 Oxygen Flow Rate 3 12/14/22 01:29 BMI result Body Mass Index 31.0 right facial droop, alert oriented times 3, comfortable, abd soft non tender Objective Data Active Medications Docusate Sodium (Docusate Sodium 100 Mg Capsule) 100 mg PO BID PRN PRN Reason: Constipation Lorazepam (Lorazepam 2 Mg/Ml Vial) 1 mg IVPUSH Q2H PRN PRN Reason: anxiety/restlessness Morphine Sulfate (Morphine Sulfate Er 30 Mg Tablet.Er) 30 mg PO Q12H TIANA Non-Formulary Medication (Acetaminophen) 1,000 mg PO Q6H PRN PRN Reason: moderate Pain Ondansetron HCl (Ondansetron Hcl 4 Mg/2 Ml Vial) 4 mg IVPUSH Q8H PRN PRN Reason: Nausea and Vomiting Oxycodone HCl (Oxycodone Hcl Immed Release 5 Mg Tablet) 5 mg PO Q4H PRN PRN Reason: moderate pain Pharmacy Consult (Consult Rx Perform Med Rec) 1 each MISCELLANE ONCE PRN PRN Reason: Consult order Polyethylene Glycol (Polyethylene Glycol 3350 17 Gm Powd.Pack) 17 gm PO DAILY PRN PRN Reason: Constipation Senna (Sennosides 8.6 Mg Tablet) 8.6 mg PO BID PRN PRN Reason: Constipation Sodium Chloride (0.9 % Sodium Chloride Flush 3 Ml Syringe) 3 ml IVFLUSH QSHIFT [facility] Last Admin: 12/14/22 07:48 Dose: 3 ml Documented By: MILES Labs 12/14/22 01:47 12/14/22 01:47 Labs: Laboratory Results - last 24 hr 12/14/22 12/14/22 12/14/22 01:22 01:23 01:47 MCV 87.5 MCH 27.5 MCHC 31.5 RDW 13.3 Plt Count 436 H MPV 9.5 Immature Gran % (Auto) 0.5 H Neut % (Auto) 82.1 H Lymph % (Auto) 5.8 L [place] % (Auto) 11.2 H Eos % (Auto) 0.2 Baso % (Auto) 0.2 Lymph # (Auto) 0.7 L [place] # (Auto) 1.4 H Eos # (Auto) 0.0 Baso # (Auto) 0.0 Abs Immat Gran (auto) 0.06 H Absolute Neuts (auto) 10.1 H Absolute Nucleated RBC 0.000 Nucleated RBC % (auto) 0.0 PT Whole Blood PT 13.6 H INR Whole Blood INR 1.1 APTT Anion Gap Estim Creat Clear Calc Estimated GFR POC Glucose 165 H Random Glucose Calcium Magnesium Total Bilirubin Direct Bilirubin AST ALT Alkaline Phosphatase Total Creatine Kinase Total Protein Albumin 12/14/22 12/14/22 01:47 01:47 MCV MCH MCHC RDW Plt Count MPV Immature Gran % (Auto) Neut % (Auto) Lymph % (Auto) [place] % (Auto) Eos % (Auto) Baso % (Auto) Lymph # (Auto) [place] # (Auto) Eos # (Auto) Baso # (Auto) Abs Immat Gran (auto) Absolute Neuts (auto) Absolute Nucleated RBC Nucleated RBC % (auto) PT 12.9 Whole Blood PT INR 1.1 Whole Blood INR APTT 25.1 L Anion Gap 15 Estim Creat Clear Calc 40.0 Estimated GFR 41 POC Glucose Random Glucose 149 H Calcium 9.3 Magnesium 2.4 Total Bilirubin 0.5 Direct Bilirubin 0.3 AST 58 H ALT 32 H Alkaline Phosphatase 197 H Total Creatine Kinase 218 H Total Protein 6.3 L Albumin 3.0 L Assessment and Plan (1) Acute CVA (cerebrovascular accident): Status: Acute Plan 77-year-old female with pertinent history of stage IV serous ovarian carcinoma, chronic hypoxemic respiratory failure due to left-sided pleural effusion in the setting of carcinomatosis status post PleurX catheter, essential hypertension who was brought to the emergency department for evaluation of sudden onset left arm and left leg weakness acute cva plan for hospice, no further work up or disease directed treatment 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 Quality Stroke Does the patient have a stroke diagnosis?: Yes Reason for No Anti-thrombotic by Day Two: Medication refused VTE Prior VTE?: No VTE Risk Level:: Medical - moderate - high VTE Device Contraindication: Treatment Not Indicated VTE Drug Contraindication: Treatment Not Indicated
--- NOTE | 2022-12-14 12:07 | PC.NURSE ---
pharmacy was called for the patients po morphine, awaiting its arrival
--- NOTE | 2022-12-14 12:09 | MHC.SL.SWA ---
Speech Pathologist Impression: Risk of Aspiration Due to: Medically Fragile Dysphasia Diet Status: Mild oral phase dysphagia due to slowed rate. Liquid Consistency and Strategies for Safe Swallow: Liquid Intake Recommendation: Thin Liquid Intake Strategies: Small Sips Solid Food Consistency: Dietary Recommendations: Regular Additional Modifications to Solid Foods: Patient will need supervision with occasional assistance with meals, due to noted upper extremity and weakness. Patient is a slow and careful eater, may have slow rate of ingestion and may eat only small amounts. Oral Medication Intake: Whole with Liquid Please contact the pharmacy regarding appropriate crushable or liquid drug formulations that are available whenever modified delivery is recommended. Compensatory Strategies and Precautions to be Taken for Safe Swallow: Sitting Upright (90 deg) Liquids from Cup Small Bites and Sips Alternate Liquids/Solids Rate of Ingestion Change Supervision While Eating and Drinking for Safe Swallow: Total Supervision (1:1) Foods to Avoid: Hard, difficulty to chew solids, large pieces of solid food. Swallowing Recommended Treatments: Recommendation for Speech: NA:Typical Evaluation Comment: Patient presents with a mildly slow oral phase of swallow on solid foods due to slow rate of mastication/prolongation. All other aspects of oral motor function and swallow WFL. Recommend START diet of Regular with Thin liquids, pills whole with liquid or puree, per patient preference. Patient will require supervision and occasional assistance during meals due to observed upper extremity weakness, tremor. Encourage patient to select preferred foods from Regular menu. 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 NAVI MUÑOZ notified of recommendations by secure text, RN in person. Frequency/Duration: Date Range for Service Req: Timeline to reassess: Senior Architectural Designer Clinican/Clinical Fellow: No Supervisory Statement: I have reviewed and agree with the student/clinical fellow's documentation: N/A Speech Language Pathologist: Elba Silva M.A., CCC-HISTORIC SITE ADMINISTRATOR
--- NOTE | 2022-12-14 12:32 | P.CNHO_ITS ---
Subjective - Subjective Chief complaint: Consult for: Ovarian carcinoma. Patient: known to practice within the last 3 years Consult date: 12/14/22 Requesting Physician: Marjan Primary Care Provider: Pb Maria III, MD Medical Summary: DIAGNOSIS: OVARIAN CARCINOMA. METS TO THE PLEURA. HPI - Consult Narrative Reason for consult: Consult for: Metastatic ovarian carcinoma. Narrative: Yolanda Bucio is a 77 year old lady, with history of stage IV serous ovarian carcinoma, chronic hypoxemic respiratory failure due to left-sided pleural effusion in the setting of carcinomatosis status post PleurX catheter, essential hypertension. She was brought to the emergency department for evaluation of sudden onset left arm and left leg weakness. Patient unable to provide history. History obtained from family at bedside, chart review and ER provider. Patient's sister and niece at bedside stated that around 00:30 as there were trying to help the patient out of bed, did notice that patient was unable to move her left side. Also noted right-sided gaze. As per family, hospice was contacted on the day of presentation to focus on quality of life and make her comfortable. Unable to obtain review of systems. Review of Systems Review of Systems: Yes Unobtainable due to mental condition and Unobtainable due to mental status PMFSH Medical History: Abdominal carcinomatosis Hyperlipidemia Hypertension Pleural effusion Primary cancer of ovary with widespread metastatic disease Family History: Mother Lung cancer Maternal Aunt Breast CA Surgical History: No pertinent past surgical history Social History: Household Members: Family Housing: House Do you presently have visiting nurse or other home services: No Alcohol intake: unknown Patient Tobacco Use Status: Never used Tobacco Smoked in Last 30 Days: No Review of Systems - Constitutional Reports system reviewed and no additional complaints, except as documented, Reports weakness, Reports weight loss - Eyes Reports system reviewed and no additional complaints, except as documented - ENT Reports system reviewed and no additional complaints, except as documented - Cardiovascular Reports system reviewed and no additional complaints, except as documented - Respiratory Reports no additional respiratory complaints - Gastrointestinal Reports system reviewed and no additional complaints, except as documented - Genitourinary Reports no additional female genitourinary complaints - Musculoskeletal Reports system reviewed and no additional complaints, except as documented - Integumentary/Breasts Skin/Breast: Reports no additional skin complaints - Neurologic Reports system reviewed and no additional complaints, except as documented - Psychiatric Reports system reviewed and no additional complaints, except as documented - Endocrine Reports no additional endocrine complaints - Hematologic/Lymphatic Reports system reviewed and no additional complaints, except as documented - Allergic/Immunologic Reports system reviewed and no additional complaints, except as documented Oncology Screenings - ECOG Performance Status [facility]G [facility] Status: [facility] Medical History: Medical History (Last Reviewed 12/14/22 @ 18:02 by Nika Gallagher RN) Abdominal carcinomatosis Hyperlipidemia Hypertension Pleural effusion Primary cancer of ovary with widespread metastatic disease Functional capacity: bed bound Patient : No Family History: Family History (Last Reviewed 12/14/22 @ 03:20 by Beryl Mora MD) Mother Lung cancer Maternal Aunt Breast CA Surgical History: Surgical History (Last Reviewed 12/14/22 @ 18:02 by Nika Gallagher RN) No pertinent past surgical history Social History: Social History (Last Reviewed 12/14/22 @ 03:20 by Beryl oMra MD) Living Situation History: Household Members: Family Housing: House Do you presently have visiting nurse or other home services: No Tobacco History: Patient Tobacco Use Status: Never used Tobacco Occupation Assessmet: service: No Home Medications and Allergies Current Medications: Current Medications Acetaminophen (Acetaminophen 325 Mg Tablet) 975 mg PO Q6H PRN PRN Reason: moderate Pain Docusate Sodium (Docusate Sodium 100 Mg Capsule) 100 mg PO BID PRN PRN Reason: Constipation Lorazepam (Lorazepam 2 Mg/Ml Vial) 1 mg IVPUSH Q2H PRN PRN Reason: anxiety/restlessness Morphine Sulfate (Morphine Sulfate Er 30 Mg Tablet.Er) 30 mg PO Q12H TIANA Ondansetron HCl (Ondansetron Hcl 4 Mg/2 Ml Vial) 4 mg IVPUSH Q8H PRN PRN Reason: Nausea and Vomiting Oxycodone HCl (Oxycodone Hcl Immed Release 5 Mg Tablet) 5 mg PO Q4H PRN PRN Reason: moderate pain Pharmacy Consult (Consult Rx Perform Med Rec) 1 each MISCELLANE ONCE PRN PRN Reason: Consult order Polyethylene Glycol (Polyethylene Glycol 3350 17 Gm Powd.Pack) 17 gm PO DAILY PRN PRN Reason: Constipation Senna (Sennosides 8.6 Mg Tablet) 8.6 mg PO BID PRN PRN Reason: Constipation Sodium Chloride (0.9 % Sodium Chloride Flush 3 Ml Syringe) 3 ml IVFLUSH QSHIFT TIANA Last Admin: 12/14/22 07:48 Dose: 3 ml Home Medications Medication Instructions Recorded Confirmed Type tramadol 50 mg tablet 50 mg PO BEDTIME PRN pain 12/11/22 12/14/22 History acetaminophen 500 mg tablet 1,000 mg PO Q6H PRN Pain 12/14/22 12/14/22 History docusate sodium 100 mg capsule 100 mg PO BID PRN Constipation 12/14/22 12/14/22 History oxycodone 5 mg tablet 5 mg PO Q6H PRN pain 12/14/22 12/14/22 History polyethylene glycol 3350 17 gram 17 g PO DAILY PRN Constipation 12/14/22 12/14/22 History oral powder packet sennosides 8.6 mg tablet (senna) 8.6 mg PO BID PRN Constipation 12/14/22 12/14/22 History Allergies Allergy/AdvReac Type Severity Reaction Status Date / Time No Known Allergies Allergy Verified 11/30/22 13:33 Physical Exam Vital signs: Vital Signs Temp 99.5 F 12/14/22 01:29 Pulse 94 12/14/22 02:56 Resp 22 H 12/14/22 02:56 BP 137/75 12/14/22 02:56 Pulse Ox 94 12/14/22 02:56 O2 Del Method Nasal Cannula 12/14/22 02:56 O2 Flow Rate 3 12/14/22 02:56 Intake & Output 12/13/22 12/14/22 12/14/22 18:59 06:59 18:59 Intake Total 120 / 120 Balance 120 / 120 Intake: Intake, Oral Amount 120 / 120 Other: Weight 84.4 kg Weight 84.4 kg - Constitutional Present: moderate distress - Routine HEENT Exam Head: Present: normal inspection ENT: Present: mucous membranes moist - Routine Neck Exam Present: supple Hem/Onc Consult Result - Labs CBC & Chem 7: 12/14/22 01:47 12/14/22 01:47 Labs: Short CBC 12/14/22 Range/Units 01:47 WBC 12.3 H (4.8-10.8) X10*3/uL Hgb 12.3 (12.0-16.0) g/dl Hct 39.1 (37.0-47.0) % Plt Count 436 H (160-400) X10*3/uL BMP 12/14/22 01:47 Sodium 140 Potassium 5.0 Chloride 106 Carbon Dioxide 24 BUN 56 H Creatinine 1.26 Calcium 9.3 Cardiac Enzymes 12/14/22 Range/Units 01:47 Total Creatine Kinase 218 H (26-140) U/L Liver Function 12/14/22 Range/Units 01:47 Total Bilirubin 0.5 (0.0-1.0) mg/dL Direct Bilirubin 0.3 (0.0-0.5) mg/dL AST 58 H (5-31) U/L ALT 32 H (0-31) U/L Alkaline Phosphatase 197 H (39-117) U/L Albumin 3.0 L (3.5-5.0) g/dL Assessment and Plan Patient Active problem list reviewed?: Yes (1) Primary cancer of ovary with widespread metastatic disease Status: Acute Assessment and plan: Patient is a 77-year-old lady who was admitted to the hospital back in mid October. She had abdominal pain. She had a pleural effusion at that time. Pleural fluid cytology revealed: Serous adenocarcinoma, consistent with vocational rehabilitation supervisor primary. She had to be readmitted on 11/16 on account of shortness of breath. This time she had a PleurX catheter placed. That does not appear to be draining too well. 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 She has stage IV disease. She would be a candidate for palliative systemic chemotherapy. Ca 125: 179. Now: 355. I requested molecular testing on the tumor tissue, to look for an actionable mutation so can decide about further treatment. Meanwhile I checked an x-ray of the chest to check for catheter tube placement. This was done on 11/30 and revealed: 1. Slightly decreased loculated left-sided pleural effusion. 2. Patchy and nodular opacities in the left lung are also slightly decreased. 3. Stable positioning of left-sided pleural catheter. She has now been admitted to the hospital with left upper and lower extremity weakness of sudden onset. She has a stroke. She was already in the process of signing up with hospice. PLAN: Will optimize her pain control. She will be prescribed MS Contin and oxycodone. She will be given Zofran for the nausea, Senokot to prevent constipation. Will see if IR can remove the PleurX catheter, for comfort. It is not functioning properly anyways. She will be going home with hospice care once stable. I did discuss the plan with her family. Moral support was provided. Thank you, Cc: Carmelina. (2) Serous adenocarcinoma Status: Acute - Time Spent With Patient Time Spent with Patient (in minutes): 30
--- NOTE | 2022-12-14 13:10 | PC.NURSE ---
kitchen called for a tray for patient
--- NOTE | 2022-12-14 13:26 | PC.NURSE ---
physical therapy came in to see patient they stated they normally dont see patients that are [employer] they stated that they would be open to conversation with the patients family if they return. Physical therapy was told that the family would be back later this evening. They stated to have us contact them if the family wishes to converse with them.
[2022-12-14] MEDS: Morphine Sulfate ER 30 MG TABLET.ER PO (14:03)
--- NOTE | 2022-12-14 14:07 | PC.NURSE ---
pt medicated per order
[2022-12-14 14:18] VITALS: RESP 24
--- NOTE | 2022-12-14 14:51 | PC.NURSE ---
patient turned/positioned to pt comfort, pure wick intact, fall precautions intact, pt refusing po at this time, noted pts RR has increased to 28
--- NOTE | 2022-12-14 15:02 | PC.NURSE ---
report given to floor
[2022-12-14 16:12] VITALS: RESP 16
--- NOTE | 2022-12-14 16:23 | MHC.CM.PN ---
CM SPOKE W/PT'S NIECE/ALT HCP NATALYA KESSLER [phone] WHO MET W/NANCY FROM [facility] AND REPORTS SHE WILL DISCUSS W/PT'S SISTER VINOD TO MAKE FINAL DECISION ON SIGNING ON VS'S FAMILY CONTACTING VISITING [facility] TO FIND 24HR HOME CARE, SANAZ AWARE THAT THE $300 A DAY FOR [facility] IS MUCH CHEAPER THAN THE COST FOR SNF PLACEMENT, SANAZ/VINOD WILL FOLLOW UP W/DECISION TOMORROW 12/15, [facility] WILL CONT TO FOLLOW DC NEEDS.
[2022-12-14 23:19] VITALS: RESP 18
[2022-12-15] MEDS: 0.9 % Sodium Chloride Flush 3 ML SYRINGE IVFLUSH ×3 (01:51→16:25)
[2022-12-15] MEDS: LORazepam 2 MG/ML VIAL 1 MG IVPUSH (02:52)
[2022-12-15 07:18] VITALS: RESP 24
--- NOTE | 2022-12-15 09:24 | MHC.CM.PN ---
CM returned a call to Patient's Niece/Alternate HCP and a RN, Lina @ [phone], who has confirmed that the goal is to dc to home on 12/18/2022, once [facility] services are in place. Lina and family are meeting with Angelo from [facility] today at 12:30 PM and CM will continue to follow. Family is very interested in a PT eval, which was attempted but there were medical concerns r/t doing the eval at that time.
--- NOTE | 2022-12-15 15:09 | P.PNIM_ITS ---
Subjective Subjective Date of Service: 12/15/22 Interval History: no changes Review of Systems Review of Systems: Yes all other systems are reviewed and are negative Physical Exam Vital Signs: Vital Signs: Last Vital Signs Temp 99.5 F 12/14/22 01:29 Pulse 94 12/14/22 02:56 Resp 24 H 12/15/22 07:18 BP 137/75 12/14/22 02:56 Pulse Ox 94 12/14/22 02:56 O2 Del Method Nasal Cannula 12/14/22 23:19 O2 Flow Rate 3 12/14/22 23:19 Oxygen Flow Rate 3 12/14/22 01:29 BMI result Body Mass Index 31.0 Constitutional - Awake and Alert, No apparent distress Eyes - PERRLA, EOMI Cardiovascular - S1S2, RRR, No edema Respiratory - Normal lung expansion, Normal respiratory effort, No respiratory distress, CTA bilaterally Skin - Warm/Dry Neurological - awake and alert Objective Data Active Medications Acetaminophen (Acetaminophen 325 Mg Tablet) 975 mg PO Q6H PRN PRN Reason: moderate Pain Docusate Sodium (Docusate Sodium 100 Mg Capsule) 100 mg PO BID PRN PRN Reason: Constipation Lorazepam (Lorazepam 2 Mg/Ml Vial) 1 mg IVPUSH Q2H PRN PRN Reason: anxiety/restlessness Last Admin: 12/15/22 02:52 Dose: 1 mg Documented By: TINO Morphine Sulfate (Morphine Sulfate Er 30 Mg Tablet.Er) 30 mg PO Q12H TIANA Last Admin: 12/15/22 11:58 Dose: Not Given Documented By: JULIA Non-Admin Reason: Patient Asleep Comments: patient asleep. when awoken stated she had no pain. aware. Ondansetron HCl (Ondansetron Hcl 4 Mg/2 Ml Vial) 4 mg IVPUSH Q8H PRN PRN Reason: Nausea and Vomiting Oxycodone HCl (Oxycodone Hcl Immed Release 5 Mg Tablet) 5 mg PO Q4H PRN PRN Reason: moderate pain Pharmacy Consult (Consult Rx Perform Med Rec) 1 each MISCELLANE ONCE PRN PRN Reason: Consult order Polyethylene Glycol (Polyethylene Glycol 3350 17 Gm Powd.Pack) 17 gm PO DAILY PRN PRN Reason: Constipation Senna (Sennosides 8.6 Mg Tablet) 8.6 mg PO BID PRN PRN Reason: Constipation Sodium Chloride (0.9 % Sodium Chloride Flush 3 Ml Syringe) 3 ml IVFLUSH QSHIFT TIANA Last Admin: 12/15/22 09:56 Dose: 3 ml Documented By: JULIA Labs 12/14/22 01:47 12/14/22 01:47 Assessment and Plan (1) Acute CVA (cerebrovascular accident): Status: Acute Plan 77-year-old female with pertinent history of stage IV serous ovarian carcinoma, chronic hypoxemic respiratory failure due to left-sided pleural effusion in the setting of carcinomatosis status post PleurX catheter, essential hypertension who was brought to the emergency department for evaluation of sudden onset left arm and left leg weakness acute cva plan for hospice, no further work up or disease directed treatment HOSPICE HOME HEALTH AIDE appreciated continue regular solids with thin liquids stage IV ovarian ca oncology eval requested, plan for home hospice ms contin, oxycodone, pain controlled chronic hypoxic respiratory failure due to left pleural effusion in ovarian ca o2 supplement htn dc meds NSTEMI no further treatment or work up at this time DNR/DNI reason for continued hospitalization: awaiting home hospice set up- plan for 12/18 Time Spent With Patient Time: Total time managing care of this patient today ____ minutes. Quality Stroke Does the patient have a stroke diagnosis?: Yes Reason for No Anti-thrombotic by Day Two: Medication refused VTE Prior VTE?: No VTE Risk Level:: Medical - moderate - high VTE Device Contraindication: Treatment Not Indicated VTE Drug Contraindication: Treatment Not Indicated
[2022-12-15 15:35] VITALS: BP 131/76; PULSE 90; RESP 20; TEMP 36.7; O2SAT 96
[2022-12-15] MEDS: Morphine Sulfate ER 30 MG TABLET.ER PO (16:29)
[2022-12-15] MEDS: Sennosides 8.6 MG TABLET PO (22:48)
[2022-12-15 23:40] VITALS: RESP 16
[2022-12-16] MEDS: 0.9 % Sodium Chloride Flush 3 ML SYRINGE IVFLUSH ×2 (00:56→09:13)
[2022-12-16 07:38] VITALS: BP 143/85; PULSE 98; RESP 25; TEMP 36.1; O2SAT 92
--- NOTE | 2022-12-16 11:36 | PM.DS ---
DS: Providers Provider Date of Service: 12/16/22 Date of admission: 12/14/22 03:12 Primary care physician: Pb Maria III, MD Consults: 12/14/22 10:57 Consult to Hematology / Oncology Routine Consulting Provider: Saranya Amaral Reason for consultation: ovarian ca DS: Diagnosis Discharge Diagnosis (1) Acute CVA (cerebrovascular accident): Status: Acute DS: Summary Hospital Course Hospital Course: This is a 77-year-old female with pertinent history of stage IV serous ovarian carcinoma, chronic hypoxemic respiratory failure due to left-sided pleural effusion in the setting of carcinomatosis status post PleurX catheter, essential hypertension who was brought to the emergency department for evaluation of sudden onset left arm and left leg weakness.? Patient unable to provide history.? History obtained from family at bedside, chart review and ER provider.? Patient's sister and niece at bedside stated that around 00:30 as there were trying to help the patient out of bed, did notice that patient was unable to move her left side.? Also noted right-sided gaze.? As per family, hospice was contacted on the day of presentation to focus on quality of life and make her comfortable.? Unable to obtain review of systems. 12/16 patient being transferred home with home Hospice Time Spent with Patient Time attestation: Total time managing care of this patient today ____ minutes. Discharge coordination time: Greater than 30 minutes Quality: Safe Use of Opioids Does Pt have an Active Cancer Diagnosis on the Problem List?: Yes Opioid Measure Date for [facility] Report: 11/16/22 Opioid Measure Time for [facility] Report: 11:37 Quality: Stroke Does the patient have a stroke diagnosis?: Yes Reason for No Anti-thrombotic at DC: Drug treatment not indicated Reason for No Anticoagulant at DC: Drug treatment not indicated Reason Not Initiating IV-Tpa: Drug treatment not indicated Reason for No Anti-thrombotic by Day Two: Drug treatment not indicated Reason for No Statin at DC: Drug treatment not indicated Physical Exam Vital Signs: Vital Signs: Last Vital Signs Temp 97.0 F 12/16/22 07:38 Pulse 98 12/16/22 07:38 Resp 25 H 12/16/22 07:38 BP 143/85 H 12/16/22 07:38 Pulse Ox 92 12/16/22 07:38 O2 Del Method Nasal Cannula 12/16/22 07:38 O2 Flow Rate 2 12/16/22 07:38 Oxygen Flow Rate 3 12/14/22 01:29 BMI result Body Mass Index 31.0 DS: Data Data Completed and Pending Completed studies during hospitalization [Text1]: Procedures Drainage of Left Pleural Cavity with Drainage Device, Percutaneous Approach (11/15/22) Drainage of Left Pleural Cavity, Percutaneous Approach (11/08/22) Discharge Plan Discharge Anticipated Discharge Date/Time: 12/16/22 11:38 Patient Disposition: Hospice - Home Discharge Diagnosis: Acute CVA, Metastatic Ovarian cancer Referrals: Pb Maria III, MD [Primary Care Provider] - 1 Week Discharge Medications: Continued oxycodone 5 mg tablet 5 mg PO Q6H PRN (Reason: pain) sennosides [senna] 8.6 mg Tablet 8.6 mg PO BID PRN (Reason: Constipation) acetaminophen 500 mg Tablet 1,000 mg PO Q6H PRN (Reason: Pain) polyethylene glycol 3350 17 gram powder in packet 17 g PO DAILY PRN (Reason: Constipation) Rx Instructions: hold for diarrhea docusate sodium 100 mg capsule 100 mg PO BID PRN (Reason: Constipation) tramadol 50 mg tablet 50 mg PO BEDTIME PRN (Reason: pain) morphine [MS Contin] 30 mg Tablet Extended Release 30 mg PO Q12H Qty: 60 0RF Rx Instructions: Partial Fill upon patient request. Discontinued atorvastatin 40 mg tablet 40 mg PO DAILY amlodipine 5 mg tablet 5 mg PO DAILY Discharge Orders: Discharge Order (Routine); Ordered 12/16/22 Ordered By: Adeline Mcmullen Activity on Discharge: As tolerated Stand Alone Forms: Patient Portal Discharge page Care Plan Goals: Home Hospice, comfort Health Concerns: Home hospice Plan of Treatment: Per Home hospice Assessment: Home hospice
--- NOTE | 2022-12-16 11:40 | MHC.CM.PN ---
Per pts family and [facility], DME was delivered last evening and pt has since had a turn in condition. Pt and family would like to get home as soon as possible, as pt wants to pass at home. Pt medically cleared for transport home with [facility]. Trans[ort set up via BLS/Emily at 1:30pm today. Hospice is planning to see patient this afternoon once she arrives home. Family will be with pt 20/11 and have hired private caregivers who will start this upcoming Sunday.
[2022-12-16] MEDS: Morphine Sulfate ER 30 MG TABLET.ER PO (12:11)
[2022-12-16 15:32] VITALS: RESP 17; TEMP 36.6
--- NOTE | 2023-01-02 13:26 | MHC.HEMONCMA ---
Grand daughter Lina called looking to see what Joseph test results were for her and her mom. Send message to Dr. Amaral about it.
== END 2022-12-16 16:01 | disposition hospice, home (50) | DRG 951 ==
LOC: HO.ED 05:37 → HO.EDOVER 06:33 → HO.IMC 14:44
PROVIDERS: Admitting Provider Student in an Organized Health Care Education/Training Program; Emergency Provider Emergency Medicine Emergency Medical Services; PCP Internal Medicine; Visit Provider Internal Medicine
DX: Z51.5 Encounter for palliative care (principal); I63.9 Cerebral infarction, unspecified; I21.4 Non-ST elevation (NSTEMI) myocardial infarction; G81.94 Hemiplegia, unspecified affecting left nondominant side; J96.11 Chronic respiratory failure with hypoxia; C78.6 Secondary malignant neoplasm of retroperitoneum and peritoneum; J91.0 Malignant pleural effusion; C56.9 Malignant neoplasm of unspecified ovary; I10 Essential (primary) hypertension; R29.810 Facial weakness; R29.710 NIHSS score 10
CPT/HCPCS: 36415; 70450; 71045; 80048; 80076; 82550; 82947; 83735; 84484; 85025; 85610; 85730; 92610; 93005; 99285; J2060

== ENCOUNTER → 2022-12-14 02:18 | Outpatient (BNV) | payer MEDICARE, SELFPAY | PROVIDERS: Emergency Provider Emergency Medicine Emergency Medical Services; PCP Internal Medicine; Visit Provider Student in an Organized Health Care Education/Training Program | DX: I63.9 Cerebral infarction, unspecified (principal); C56.9 Malignant neoplasm of unspecified ovary; C80.0 Disseminated malignant neoplasm, unspecified | CPT/HCPCS: 99223; 99232; 99239; 99499 ==

== ENCOUNTER → 2022-12-14 03:12 | Outpatient (BNV) | payer MEDICARE, SELFPAY | PROVIDERS: Admitting Provider Student in an Organized Health Care Education/Training Program; Emergency Provider Emergency Medicine Emergency Medical Services; PCP Internal Medicine; Visit Provider Internal Medicine Medical Oncology | DX: C56.9 Malignant neoplasm of unspecified ovary (principal); C78.6 Secondary malignant neoplasm of retroperitoneum and peritoneum; C54.1 Malignant neoplasm of endometrium | CPT/HCPCS: 99222 ==